=== PATIENT | female | born 1950 | race Caucasian/White ===

== ENCOUNTER 2019-02-24 03:46 | Inpatient (IN) ==
--- NOTE | 2019-02-18 09:28 | EKG Report ---
Test Performed on : 02/18/2019 09:05:55 AM Test Reason : PAT Blood Pressure : / mmHG Vent. Rate : 056 BPM Atrial Rate : 056 BPM P-R Int : 148 ms QRS Dur : 080 ms QT Int : 466 ms P-R-T Axes : 057 027 055 degrees QTc Int : 449 ms Sinus bradycardia. Otherwise normal ECG When compared with ECG of 26-NOV-2009 13:28, No significant change was found Confirmed by Rayna DUNCAN, Wilian Scott ([id number]) on 02/18/2019 3:27:52 PM
[2019-02-18 10:14] LABS: HEMOGLOBIN 11.1 g/dL (12.0-16.0); MCH 28.5 PG (27-31); MCHC 31.7 g/dL (33-37); MCV 89.7 FL (81-99); MPV 10.4 FL (7.4-10.4); RBC 3.9 XMIL (4.2-5.4); RDW 12.9 % (11.5-14.5); WBC 7.03 X1000 (4.8-10.8)
[2019-02-18 10:41] LABS: CALCIUM 9.5 mg/dL (8.8-10.2); CREATININE 1.6 mg/dL (0.5-0.9); POTASSIUM 4.4 mmol/L (3.5-5.1)
[2019-02-24] MEDS ORDERED: NITROGLYCERIN 50 MG/D5W 50 MG/250 ML IV.SOLN ONE (06:05)
[2019-02-24] MEDS ORDERED: LR 1,000 ML ONE ×2 (06:34→11:03)
[2019-02-24] MEDS ORDERED: KEFZOL 1 GM/D5W 1 GM/50 ML IVPB ONE (06:34)
[2019-02-24] MEDS ORDERED: NS 1,000 ML ONE (08:42)
[2019-02-24] MEDS ORDERED: XYLOCAINE 1% ONE (08:42)
[2019-02-24] MEDS ORDERED: MARCAINE 0.25% PF/EPI 1:200,000 ONE (08:42)
[2019-02-24] MEDS ORDERED: HEPARIN ONE (08:42)
[2019-02-24] MEDS ORDERED: KEFZOL ONE (08:42)
[2019-02-24] MEDS ORDERED: NS 500 ML ONE (08:45)
[2019-02-24] MEDS ORDERED: XYLOCAINE-MPF 2% ONE (09:37)
[2019-02-24] MEDS ORDERED: QUELICIN (DOSE) ONE (09:37)
[2019-02-24] MEDS ORDERED: NEO-SYNEPHRINE ONE (09:37)
[2019-02-24] MEDS ORDERED: EPHEDRINE ONE (09:37)
[2019-02-24] MEDS ORDERED: STERILE WATER INJ. ONE (09:37)
[2019-02-24] MEDS ORDERED: ZOFRAN ONE (09:37)
[2019-02-24] MEDS ORDERED: ROBINUL ONE (09:37)
[2019-02-24] MEDS ORDERED: AMIDATE ONE (09:38)
[2019-02-24] MEDS: OFIRMEV 1000 MG/ISOTONIC SOLN 1,000 MG/100 ML BOTTLE ONE ×2 (10:24→11:48)
--- NOTE | 2019-02-24 10:31 | OPERATIVE NOTE ---
PROCEDURE DATE: 02/24/2019 PROCEDURE PERFORMED: Left carotid endarterectomy with patch angioplasty. SURGEON: Sabino Syed MD. ROLLER BEARING INSPECTOR: Ivan Quintana RN. PREOPERATIVE DIAGNOSIS: High-grade left internal carotid stenosis. POSTOPERATIVE DIAGNOSIS: High-grade left internal carotid stenosis. DESCRIPTION OF PROCEDURE: Satisfactory general endotracheal anesthesia was achieved. The patient was gently turned to the right. The left side of the neck was prepped and draped in a sterile fashion. We marked the skin in a skin line and anesthetized the skin with 0.25 Marcaine with epinephrine. We then incised the skin in the skin line. We carried our incision to the platysma. We then dissected along the anterior border of the sternocleidomastoid muscle. We placed a Gelpi retractor. Crossing vein was ligated with 3-0 silk ties and divided and clipped as well. We then exposed the common carotid artery, surrounded it with an umbilical tape. Then 5000 units of heparin were given. We then dissected the bifurcations. The external carotid was surrounded with a large vessel loop. The internal carotid was dissected and surrounded with a small vessel loop. We did not get high enough to identify the hypoglossal nerve. After the heparin had circulated for 5 minutes, we then occluded flow in the external with a vessel loop, clamped off the internal with a profunda clamp and clamped off the common with a 35/35 angle DeBakey clamp. Under 2.5 loupe magnification, we incised the common carotid with an 11 blade and used a Brito scissors to dissect through the calcific plaque into the internal carotid. We then placed a 4 to 3 mm Sundt shunt, the smaller end going in the internal, the larger end going in the common. Then we used a Esparto to raise the plaque out of the bulb. We transected it proximally with the Brito scissors. We just did an eversion endarterectomy on the external and then dissected the internal until we had a very nice taper point, removing the plaque. We irrigated out the endarterectomized vessel and removed all leaflets we could identify. There was excellent taper point and no need for a tacking suture of the intima. We then obtained a 1 x 6 bovine patch that had been soaked in saline. We then constructed the patch angioplasty with a running 6-0 Prolene stitch. As we neared closure, I finished completion of the patch angioplasty, we back bled the external carotid artery. We then removed the shunt from the internal and back bled it. We clamped it off with the profunda clamp and then removed the shunt from the common and fore bled it. Once again, we clamped the vessels and then completed the patch angioplasty. We held the internal occluded, opened the external, then the common and then after 7 seconds, opened the internal. A couple of additional stitches were used to achieve complete hemostasis along the patch angioplasty. We irrigated out the wound with Kefzol-impregnated saline. The patch angioplasty was hemostatic. We placed a Loc drain within the wound, secured it to the skin with a 2-0 silk. We then closed the platysma with a running 3-0 Polysorb. Once again, injected 0.25 Marcaine with epinephrine in the subcutaneous tissue for anesthetic relief of the incision. We then closed the skin with a 4-0 Polysorb subcuticular stitch. Telfa and a sterile OpSite was applied. A sterile dressing was placed around the exit site of the drain. She tolerated it well, was awakening at the time of this dictation. cc: Sabino Syed MD
[2019-02-24] MEDS ORDERED: LR 1,000 ML IV SCH ×2 (11:20→17:06)
[2019-02-24] MEDS ORDERED: ZOFRAN IV PRN (11:20)
[2019-02-24 13:15] LABS: URINE SOURCE CATH
[2019-02-24 13:20] LABS: BILIRUBIN URINE NEGATIVE (NEGATIVE); BLOOD URINE NEGATIVE (NEGATIVE); COLOR STRAW; GLUCOSE URINE NEGATIVE (NEGATIVE); KETONE URINE NEGATIVE (NEGATIVE); LEUKOCYTES URINE SMALL (NEGATIVE); NITRITE URINE NEGATIVE (NEGATIVE); PROTEIN URINE NEGATIVE (NEGATIVE); SP GRAVITY URINE 1.006; TURBIDITY URINE CLEAR (CLEAR); UROBILINOGEN URINE NORMAL (NORMAL)
[2019-02-24 13:22] LABS: UR EPITHELIAL CELLS <10 /HPF (<10); URINE BACTERIA NEGATIVE /HPF; URINE RBC <10 /HPF (<10); URINE WBC <10 /HPF (<10)
[2019-02-24] MEDS: ULTRAM PO PRN ×2 (13:57→19:41)
[2019-02-24] MEDS: ZANTAC PO SCH ×2 (15:00→20:09)
[2019-02-24] MEDS: NEURONTIN PO SCH ×2 (15:01→20:09)
[2019-02-24] MEDS: OFIRMEV 1000 MG/ISOTONIC SOLN 1,000 MG/100 ML BOTTLE IV SCH ×2 (15:01→21:15)
--- NOTE | 2019-02-24 18:40 | GENERAL SURGERY PROGRESS NOTE ---
DATE: 02/24/2019 TIME: 5:05 p.m. Ms. Nick is doing well. Her trachea is in the midline. There is no significant swelling. Neurologically, she is fine. We will give her liquids tonight, remove her arterial line, and transfer out of the unit in the morning. cc: Sabino Syed MD
[2019-02-24] MEDS: ZANAFLEX PO SCH (20:08)
[2019-02-24] MEDS: TOPROL XL PO SCH (20:09)
[2019-02-24] MEDS ORDERED: VALIUM PO ONE (22:44)
[2019-02-25] MEDS: ULTRAM PO PRN ×2 (02:37→18:47)
[2019-02-25] MEDS: OFIRMEV 1000 MG/ISOTONIC SOLN 1,000 MG/100 ML BOTTLE IV SCH ×2 (03:50→09:00)
[2019-02-25] MEDS: LINZESS PO SCH (06:23)
[2019-02-25] MEDS: SYNTHROID PO SCH (06:34)
[2019-02-25] MEDS ORDERED: SYNTHROID PO SCH (07:00)
[2019-02-25] MEDS: TOPROL XL PO SCH ×2 (08:59→21:00)
[2019-02-25] MEDS: NEXIUM PO SCH (09:00)
[2019-02-25] MEDS: ASPIRIN PO SCH (09:00)
[2019-02-25] MEDS: ARICEPT PO SCH (09:00)
[2019-02-25] MEDS: NEURONTIN PO SCH ×3 (09:00→21:00)
[2019-02-25] MEDS: FLOMAX PO SCH (09:00)
[2019-02-25] MEDS: NORVASC PO SCH (09:00)
[2019-02-25] MEDS: ZYLOPRIM PO SCH (09:40)
[2019-02-25] MEDS: BUSPAR PO SCH ×2 (09:40→21:00)
--- NOTE | 2019-02-25 09:53 | GENERAL SURGERY PROGRESS NOTE ---
DATE: 02/25/2019 SUBJECTIVE: she is postop day 1 after left carotid endarterectomy. She is doing well. Trachea is midline. No significant swelling. She is neurologically intact. PLAN: The plan is to remove her drain, advance her diet, and transfer out to her regular room. She is pleased with her progress. cc: Sabino Syed MD
[2019-02-25] MEDS: SINEQUAN PO SCH ×3 (09:54→17:11)
[2019-02-25] MEDS: ZANTAC PO SCH ×2 (16:01→21:00)
[2019-02-25] MEDS: ZANAFLEX PO SCH (21:00)
[2019-02-26] MEDS: ULTRAM PO PRN (00:36)
[2019-02-26] MEDS: LINZESS PO SCH (06:04)
[2019-02-26] MEDS: SYNTHROID PO SCH (06:04)
[2019-02-26] MEDS: BUSPAR PO SCH (09:10)
[2019-02-26] MEDS: ZYLOPRIM PO SCH (09:10)
[2019-02-26] MEDS: FLOMAX PO SCH (09:11)
[2019-02-26] MEDS: ARICEPT PO SCH (09:11)
[2019-02-26] MEDS: NEXIUM PO SCH (09:11)
[2019-02-26] MEDS: ASPIRIN PO SCH (09:11)
[2019-02-26] MEDS: NORVASC PO SCH (09:11)
[2019-02-26] MEDS: NEURONTIN PO SCH (09:11)
[2019-02-26] MEDS: SINEQUAN PO SCH ×2 (09:11→13:15)
[2019-02-26] MEDS: TOPROL XL PO SCH (09:11)
[2019-02-26 12:19] VITALS: BP 139/49
--- NOTE | 2019-02-26 14:13 | GENERAL SURGERY PROGRESS NOTE ---
DATE: 02/26/2019 SUBJECTIVE: Ms. Nick is doing well. OBJECTIVE: Hemodynamically she is good. Neurologically, she is fine. Her trachea is in midline. No significant hematoma was present. PLAN: The plan is to let her go home. We discussed wound care and activity at home. She will return to see me in the office in about 10 days. cc: Sabino Syed MD
== END 2019-02-26 14:40 | disposition home or self-care (01) | DRG 39 ==
LOC: SURHOLD 03:46 → ICU 11:19 → 4N 02-25 10:12
PROVIDERS: ADMIT Surgery; ATTEND Surgery

== ENCOUNTER 2019-03-03 21:48 | Inpatient (IN) ==
[2019-03-03 22:58] LABS: URINE SOURCE CLEAN CATCH
[2019-03-03 23:01] LABS: BILIRUBIN URINE NEGATIVE (NEGATIVE); BLOOD URINE NEGATIVE (NEGATIVE); COLOR STRAW; GLUCOSE URINE NEGATIVE (NEGATIVE); KETONE URINE NEGATIVE (NEGATIVE); LEUKOCYTES URINE NEGATIVE (NEGATIVE); NITRITE URINE NEGATIVE (NEGATIVE); PROTEIN URINE NEGATIVE (NEGATIVE); SP GRAVITY URINE 1.005; TURBIDITY URINE CLEAR (CLEAR); UR EPITHELIAL CELLS <10 /HPF (<10); URINE BACTERIA NEGATIVE /HPF; URINE RBC <10 /HPF (<10); URINE WBC <10 /HPF (<10); UROBILINOGEN URINE NORMAL (NORMAL)
[2019-03-03 23:29] LABS: BASO# 0.04 X1000 (0.0-0.2); BASO% 0.6 % (0.0-0.8); EOS% 1.6 % (0.0-10.0); HEMATOCRIT 34.4 % (37.0-47.0); LYMPH# 2.48 X1000 (1.2-3.4); LYMPH% 39.9 % (20.5-51.1); MCH 28.5 PG (27-31); MCV 89.1 FL (81-99); MONO# 0.66 X1000 (0.11-0.59); MONO% 10.6 % (1.7-9.3); NEUT# 2.93 X1000 (1.4-6.5); NEUT% 47.3 % (42.2-75.2); PLT 292 X1000 (130-400); RBC 3.86 XMIL (4.2-5.4); RDW 12.8 % (11.5-14.5); WBC 6.21 X1000 (4.8-10.8)
[2019-03-03 23:35] LABS: UR AMPHETAMINES QUAL NONE DETECTED (NONE DETECT); UR BARBITUATES QUAL NONE DETECTED (NONE DETECT); UR BENZODIAZEPIN QUAL NONE DETECTED (NONE DETECT); UR CANNABINOIDS QUAL NONE DETECTED (NONE DETECT); UR COCAINE QUAL NONE DETECTED (NONE DETECT); UR METHADONE QUAL NONE DETECTED (NONE DETECT); UR OPIATES QUAL PRESUMPTIVE POSITIVE (NONE DETECT); UR OXYCODONE QUAL NONE DETECTED (NONE DETECT); UR PCP QUAL NONE DETECTED (NONE DETECT)
[2019-03-03 23:52] LABS: ALB/GLOB RATIO 1.6; ALBUMIN 4.2 g/dL (3.5-5.0); CALCIUM 9.4 mg/dL (8.8-10.2); CREATININE 1.3 mg/dL (0.5-0.9); POTASSIUM 4.3 mmol/L (3.5-5.1); TOTAL BILIRUBIN 0.15 mg/dL (0.20-1.00); TOTAL PROTEIN 6.9 g/dL (6.3-8.3)
[2019-03-03 23:53] LABS: INR 0.86; PROTIME 12.5 Seconds (11.0-16.0)
--- NOTE | 2019-03-04 01:30 | PROVIDER DOCUMENTATION ---
This chart was entered by Carmen Ayers Scribe, acting as scribe for Brenna Conner MD. HPI-Neurological Disorder - General Chief Complaint: Weakness Stated Complaint: post op complaint Time Seen by Provider: 03/03/19 22:15 Allergies/Adverse Reactions: Patient Allergies Allergy/AdvReac Type Severity Reaction Status Date / Time adhesive tape AdvReac Unknown Verified 02/18/19 08:59 Home Medications: Home Medication List Medication Instructions Recorded Confirmed Last Taken Type Acetaminophen with Codeine 1 tab PO Q8H PRN 02/26/18 03/03/19 02/23/19 History [Tylenol with Codeine #4 Tablet] Allopurinol 100 mg PO DAILY 02/26/18 03/03/19 02/23/19 History Doxepin [Sinequan] 150 mg PO TID 02/26/18 03/03/19 02/23/19 History Gabapentin 800 mg PO TID 02/26/18 03/03/19 02/23/19 History Levothyroxine [Synthroid] 100 microgm PO DAILY 02/26/18 03/03/19 02/23/19 History Donepezil HCl 5 mg PO DAILY 08/29/18 03/03/19 02/23/19 History Esomeprazole [Nexium] 40 mg PO DAILY 08/29/18 03/03/19 02/23/19 History Tizanidine [Zanaflex] 4 mg PO QHS 08/29/18 03/03/19 02/23/19 History Zolpidem Tartrate [Ambien] 0.5 - 1 tab PO HS 08/29/18 03/03/19 02/23/19 History Linaclotide [Linzess] 145 mcg PO DAILY #90 cap 09/01/18 03/03/19 02/10/19 Rx Amlodipine [Norvasc] 5 mg PO DAILY 02/18/19 03/03/19 02/23/19 22:00 History Buspirone [Buspar] 15 mg PO BID 02/18/19 03/03/19 02/23/19 History Furosemide 20 mg PO PRN PRN 02/18/19 03/03/19 02/22/19 History Metoprolol Succinate 100 mg PO BID 02/18/19 03/03/19 02/23/19 22:00 History Ranitidine HCl [Zantac] 300 mg PO QHS 02/18/19 03/03/19 02/23/19 History Tamsulosin [Flomax] 0.4 mg PO DAILY 02/18/19 03/03/19 02/23/19 History Aspirin 81 mg PO DAILY chewtab 02/26/19 03/03/19 Unknown Rx - History of Present Illness-Neuro Nature of Presenting Problem: pt is a 68 yr old female presenting with weakness to right arm/hand onset 1200 today, pt reports left carotid surgery 1 week ago. 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 pt denies any chest pain, shortness of breath difficulty ambulating, no weakness to right leg Severity: reports: mild Onset/Duration: reports: this afternoon (1200) Timing: reports: still present Context: reports: other (weak right arm/hand) Character of Altered Mental Status: reports: N/A Any recent trauma/injury?: reports: none Character of Deficits: reports: new weakness (right arm/hand) New weakness or altered sensation location:: reports: RUE Cognitive Baseline: alert, oriented x3 Gait Baseline: walks without assistance Associated Symptoms: reports: weakness (right arm/hand). denies: headache, confusion, slurred speech, tingling in legs/feet, trouble walking, vision changes Similar Symptoms Previously?: No Recently seen or treated by another doctor?: No Review of Systems - Adult - REVIEW OF SYSTEMS - ADULT Constitutional: denies: fever, fatique Eyes: denies: blurred vision, double vision Ears, Nose, Mouth & Throat: denies: ear pain, sinus problem, hoarseness, throat pain, throat swelling Cardiovascular: denies: chest pain, palpitations, syncope Respiratory: denies: cough, wheezing Gastrointestinal: denies: abdominal pain, diarrhea, nausea, vomiting Genitourinary: denies: dysuria, frequency, flank pain Musculoskeletal: reports: muscle weakness (right arm/hand). denies: back pain Integumentary: reports: no symptoms reported Neurological: denies: dizziness/vertigo, headache/migraines, numbness, slurred speech, tremors Psychiatric: reports: no symptoms reported Endocrine: reports: no symptoms reported Hematologic/Lymphatic: reports: no symptoms reported Allergic/Immunologic: reports: no symptoms reported All Other Systems: Reviewed and Negative Past History - Adult - PAST MEDICAL HISTORY-ADULT Review of Records: reports: Old Records Reviewed, Nursing Assessment Review, Medications Reviewed, Social history reviewed & non-contributory. Major Childhood Illnesses: reports: denies history Cardiovascular: reports: denies history Respiratory: reports: denies history Gastrointestinal: reports: denies history Obstetrical/Gynecological: reports: denies history Genitourinary: reports: denies history Musculoskeletal: reports: denies history Neurological: reports: denies history Endocrine/Immune: reports: denies history Other Conditions: reports: denies history - IMMUNIZATION STATUS Childhood Immunizations: See Nurse Assessment Flu Vaccine: See Nurse Assessment - FAMILY HISTORY Family History: reviewed, not pertinent - SOCIAL HISTORY Smoking: quit greater than 1 year Substance Use: denies Living Situation: family Physical Exam- Neurological - Physical Exam-Neuro Initial Vital Signs Reviewed: Yes General Appearance: alert, no apparent distress Eye Exam: left eye: normal inspection, PERRL HENMT: normocephalic/atraumatic, moist mucous membranes, normal ENT inspection Head Injury: no evidence of injury Neck: non-tender, full range of motion, supple, other (clean/dry bandage left neck) Respiratory: chest non-tender, lungs clear, normal breath sounds, no respiratory distress, no accessory muscle use Cardiovascular: normal peripheral pulses, regular rate, rhythm, no edema Abdominal Exam: normal bowel sounds, non tender, soft Lymphatic: no adenopathy Peripheral Pulses: radial (R): 2+, radial (L): 2+ Extremity: normal range of motion, non-tender, 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 Exam: normal hearing, normal speech, PERRL Motor/Sensory: no motor deficit, no sensory deficit, no pronator drift Neurologic: grossly normal, no motor/sensory deficits, other (CN II-XII intact) Integumentary: normal color, normal turgor, warm/dry Psych/Mental Status: normal mood/affect - Glascow Coma Scale Best Eye Response: (4) open spontaneously Best Verbal Response: (5) oriented Best Motor Response: (6) obeys commands Total Glascow Score: 15 Progress - PLAN OF CARE/RESULTS Progress/Plan/Lab Results: Vital Signs - 8 hr 03/03/19 23:18 03/03/19 23:33 03/03/19 23:48 Pulse Rate 102 H 97 H 101 H Respiratory Rate 22 22 24 Blood Pressure 128/84 130/73 114/82 O2 Sat by Pulse Oximetry 94 L 95 95 03/04/19 00:03 03/04/19 00:18 03/04/19 00:48 Pulse Rate 102 H 100 H 99 H Respiratory Rate 20 17 23 Blood Pressure 131/79 98/74 131/76 O2 Sat by Pulse Oximetry 93 L 94 L 93 L 03/04/19 01:03 03/04/19 01:18 Pulse Rate 97 H 108 H Respiratory Rate 25 H 20 Blood Pressure 114/86 166/93 O2 Sat by Pulse Oximetry 95 93 L Laboratory Results - last 24 hr 03/03/19 03/03/19 03/03/19 22:16 22:52 22:52 WBC RBC Hgb Hct MCV MCH MCHC RDW Std Deviation Plt Count MPV Immature Gran % (Auto) Neut % (Auto) Lymph % (Auto) Cory[place] % (Auto) Eos % (Auto) Baso % (Auto) Immature Gran # (Auto) Neut # (Auto) Lymph # (Auto) Coryell # (Auto) Eos # (Auto) Baso # (Auto) PT INR Sodium Potassium Chloride Carbon Dioxide Anion Gap BUN Creatinine Estimated GFR/1.73 m2 BUN/Creatinine Ratio Glucose POC Glucose 110 H Calculated Osmolality Calcium Total Bilirubin AST ALT Alkaline Phosphatase Troponin T Total Protein Albumin Globulin Albumin/Globulin Ratio Urine Source CLEAN CATCH Urine Color STRAW Urine Turbidity CLEAR Urine pH 6.0 Ur Specific Weston 1.005 Urine Protein NEGATIVE Ur Glucose (Stick) NEGATIVE Ur Ketones (Stick) NEGATIVE Urine Blood NEGATIVE Urine Nitrite NEGATIVE Urine Bilirubin NEGATIVE Urobilinogen Dipstick NORMAL Urine Leukocytes NEGATIVE Urine WBC (Auto) <10 Urine RBC (Auto) <10 U Epithel Cells (Auto) <10 Urine Bacteria (Auto) NEGATIVE Urine Opiates Screen PRESUMPTIVE POSITIVE A Ur Oxycodone Screen NONE DETECTED Ur Methadone, Qual NONE DETECTED Ur Barbiturates Screen NONE DETECTED Ur Phencyclidine Scrn NONE DETECTED Ur Amphetamines Screen NONE DETECTED U Benzodiazepines Scrn NONE DETECTED Urine Cocaine Screen NONE DETECTED U Cannabinoids Screen NONE DETECTED 03/03/19 03/03/19 03/03/19 23:10 23:10 23:10 WBC 6.21 RBC 3.86 L Hgb 11.0 L Hct 34.4 L MCV 89.1 MCH 28.5 MCHC 32.0 L RDW Std Deviation 12.8 Plt Count 292 MPV 10.0 Immature Gran % (Auto) 0.0 Neut % (Auto) 47.3 Lymph % (Auto) 39.9 Coryell % (Auto) 10.6 H Eos % (Auto) 1.6 Baso % (Auto) 0.6 Immature Gran # (Auto) 0.00 Neut # (Auto) 2.93 Lymph # (Auto) 2.48 Coryell # (Auto) 0.66 H Eos # (Auto) 0.10 Baso # (Auto) 0.04 PT 12.5 INR 0.86 Sodium 143 Potassium 4.3 Chloride 105 Carbon Dioxide 24 L Anion Gap 14 BUN 18 Creatinine 1.3 H Estimated GFR/1.73 m2 41 BUN/Creatinine Ratio 14 Glucose 158 H POC Glucose Calculated Osmolality 290 Calcium 9.4 Total Bilirubin 0.15 L AST 20 ALT 19 Alkaline Phosphatase 159 H Troponin T Total Protein 6.9 Albumin 4.2 Globulin 2.7 Albumin/Globulin Ratio 1.6 Urine Source Urine Color Urine Turbidity Urine pH Ur Specific Weston Urine Protein Ur Glucose (Stick) Ur Ketones (Stick) Urine Blood Urine Nitrite Urine Bilirubin Urobilinogen Dipstick Urine Leukocytes Urine WBC (Auto) Urine RBC (Auto) U Epithel Cells (Auto) Urine Bacteria (Auto) Urine Opiates Screen Ur Oxycodone Screen Ur Methadone, Qual Ur Barbiturates Screen Ur Phencyclidine Scrn Ur Amphetamines Screen U Benzodiazepines Scrn Urine Cocaine Screen U Cannabinoids Screen 03/03/19 03/04/19 23:10 03:38 WBC RBC Hgb Hct MCV MCH MCHC RDW Std Deviation Plt Count MPV Immature Gran % (Auto) Neut % (Auto) Lymph % (Auto) Coryell % (Auto) Eos % (Auto) Baso % (Auto) Immature Gran # (Auto) Neut # (Auto) Lymph # (Auto) Coryell # (Auto) Eos # (Auto) Baso # (Auto) PT INR Sodium Potassium Chloride Carbon Dioxide Anion Gap BUN Creatinine Estimated GFR/1.73 m2 BUN/Creatinine Ratio Glucose POC Glucose 118 H Calculated Osmolality Calcium Total Bilirubin AST ALT Alkaline Phosphatase Troponin T < 0.010 Total Protein Albumin Globulin Albumin/Globulin Ratio Urine Source Urine Color Urine Turbidity Urine pH Ur Specific Weston Urine Protein Ur Glucose (Stick) Ur Ketones (Stick) Urine Blood Urine Nitrite Urine Bilirubin Urobilinogen Dipstick Urine Leukocytes Urine WBC (Auto) Urine RBC (Auto) U Epithel Cells (Auto) Urine Bacteria (Auto) Urine Opiates Screen Ur Oxycodone Screen Ur Methadone, Qual Ur Barbiturates Screen Ur Phencyclidine Scrn Ur Amphetamines Screen U Benzodiazepines Scrn Urine Cocaine Screen U Cannabinoids Screen Orders Category Date Time Status Admit - [facility] Routine AdmDCTranf 03/04/19 05:49 Active FSBS/Accucheck Result NOW Care 03/04/19 05:49 Active Neurological Check Q4H Care 03/04/19 05:49 Active Vital Signs Order Q 4-HR ASSESS Care 03/04/19 05:49 Active Z-Document. for Tele Applied ORDERED Care 03/04/19 05:49 Completed NPO Diet 03/04/19 05:49 Active CHEST-PORTABLE [RAD] Urgent Exams 03/04/19 03:[address] HEAD W/O CONTRAST [CT] Stat Exams 03/03/19 22:44 Completed CBC WITH ELECTRONIC DIFF [HEME] Stat Lab 03/03/19 23:10 Completed COMPREHENSIVE METABOLIC PANEL [CHEM] Stat Lab 03/03/19 23:10 Completed PROTIME WITH INR [COAG] Stat Lab 03/03/19 23:10 Completed TROPONIN T Stat Lab 03/03/19 23:10 Completed URINALYSIS W/POSS RFLX CULT [URINALYSIS] Stat Lab 03/03/19 22:52 Completed URINE DRUG SCREEN Stat Lab 03/03/19 22:52 Completed Acetaminophen [Ofirmev 1000 mg/Isotonic Soln] Med 03/04/19 03:25 Discontinued 1,000 mg in 100 ml IV ONCE Ondansetron [Zofran] Med 03/04/19 03:27 Discontinued 4 mg IV NOW ONE Oxygen Device Routine Oth 03/04/19 05:49 Completed Telemetry [OM.EQ] Routine Oth 03/04/19 05:49 Active Transfer/Admit Order [TRANSFER] Routine Transfer 03/04/19 02:56 Completed Result Diagrams: 03/04/19 06:20 03/04/19 06:20 - EKG 1 Time of EKG reading by physician:: 22:21 EKG Read and Signed by:: Brenna Conner EKG Interpretation (*Must complete 3 of following elements*): Normal (+artifact) Rate: 93 Rhythm: nsr Acworth: normal QRS: normal IN Interval: normal ST Wave: normal - CT/MRI 1 CT Study: Head Impression: Normal (no acute intracranial injury, specifically no evidence of intracranial hemorrhage), See EMR Report Comparison with other Films: no changes (01/21/19) Departure - Departure Date of Disposition Decision: 03/04/19 Time of Disposition Decision: 00:15 DIAGNOSIS: Weakness of left upper extremity, Stroke-like symptoms Disposition: ADMITTED INPATIENT 09 Certified Medical Emergency: Emergent Condition: Stable - Critical Care Note This patient required my direct & personal management of CC.: No Attestation - Physician/ RADHA Attestation Patient care was provided by Advanced Practice Provider:: No The physician spent face to face time with patient:: Yes Advanced Practice Provider documentation review:: Supervising physician onsite and consulted in the evaluation and care of this patient. The physician did have a face to face encounter with the patient. - NIH Stroke Scale NIH Type: Initial Evaluation Level of Consciousness: 0-Alert LOC Questions (ask month and age): 0-Answers Both Correctly LOC Commands (ask to open & close eyes;make a fist, let go): 0-Obeys Both Correctly Best Gaze (horizontal eye movement): 0-Normal Visual (use finger movement, counting or visual threat): 0-No Visual Loss Facial Palsy (show teeth or raise eyebrows & close eyes tght: 0-Symmetrical Movement Motor Function-left arm: 0-Normal Motor Function-right arm: 0-Normal Motor Function-left le-Normal Motor Function-right le-Drift Limb Ataxia(wbxiap-[id number], or heel to cason): 2-Present in two limbs Sensory(pin prick to face,arms,trunk,legs-compare side/side): 0-No Ataxia Best Language(name item/read sentence.Ex-Down to Earth): 0-No Aphasia Dysarthria(Pt read words or say words Ex.Mama,Tip-Top,Thanks: 0-Normal Articulation Extinction and Inattention: 0-Normal NIH Total Score: 2 This chart was documented by the indicated scribe, (Carmen Ayers, Scribe) and accurately reflects the services I performed and decisions made by me, Brenna Conner MD, as attested by the provider's signature.
[2019-03-04] MEDS ORDERED: OFIRMEV 1000 MG/ISOTONIC SOLN 1,000 MG/100 ML BOTTLE IV ONE (03:25)
[2019-03-04] MEDS ORDERED: ZOFRAN IV ONE (03:27)
[2019-03-04] MEDS ORDERED: ZOFRAN IV PRN (05:57)
--- NOTE | 2019-03-04 06:11 | Diag Imaging Result Doc PS360 ---
CT HEAD W/O CONTRAST - 03/03/2019 INDICATION: weakness LUE, recent carotid endarterectomy COMPARISON: 01/21/2019 FINDINGS: The ventricles and sulci are normal in size and contour. No intracranial mass or hemorrhage. There is stable mild scattered periventricular white matter chronic microvascular disease. The skull is intact. The sinuses are clear. IMPRESSION: No acute disease or change from prior. This exam was performed using automated exposure control, adjustment of mA or kV according to patient size, and/or use of iterative reconstruction technique Electronically signed by Chip Parmar 03/04/2019 6:09 AM
[2019-03-04 06:36] LABS: HEMATOCRIT 34.4 % (37.0-47.0); HEMOGLOBIN 11.1 g/dL (12.0-16.0); MCHC 32.3 g/dL (33-37); MCV 89.8 FL (81-99); RBC 3.83 XMIL (4.2-5.4); WBC 6.13 X1000 (4.8-10.8)
[2019-03-04 06:37] LABS: BASO# 0.03 X1000 (0.0-0.2); BASO% 0.5 % (0.0-0.8); EOS# 0.11 X1000 (0.0-0.7); EOS% 1.8 % (0.0-10.0); LYMPH# 2.38 X1000 (1.2-3.4); LYMPH% 38.8 % (20.5-51.1); MONO# 0.62 X1000 (0.11-0.59); MONO% 10.1 % (1.7-9.3); MPV 9.9 FL (7.4-10.4); NEUT# 2.99 X1000 (1.4-6.5); NEUT% 48.8 % (42.2-75.2); PLT 298 X1000 (130-400); RDW 12.9 % (11.5-14.5)
[2019-03-04 06:52] LABS: CALCIUM 9.2 mg/dL (8.8-10.2); CREATININE 1.1 mg/dL (0.5-0.9); POTASSIUM 3.8 mmol/L (3.5-5.1)
[2019-03-04] MEDS ORDERED: NS 1,000 ML IV SCH (07:00)
--- NOTE | 2019-03-04 08:06 | Diag Imaging Result Doc PS360 ---
EXAM: CHEST-PORTABLE INDICATION: LLL Crackles,SOB TECHNIQUE: One view COMPARISON: None. FINDINGS: There are slightly increased interstitial markings bilaterally, which may represent minimal edema. There is a slight opacity at the left lung base suggesting atelectasis and/or infiltrate. There also may be a trace effusion on the left. There is minimal biapical pleural thickening. There are median sternotomy wires and metallic clips rejecting over the left hilar region. Cardiac silhouette is unremarkable, otherwise. IMPRESSION: Slight increased interstitial markings and vague opacity at the left lung base suggesting mild atelectasis and/or infiltrate. Electronically signed by Rj Loyd 03/04/2019 7:19 AM
--- NOTE | 2019-03-04 08:06 | EKG Report ---
Test Performed on : 03/03/2019 10:17:42 PM Test Reason : WEAKNESS Blood Pressure : / mmHG Vent. Rate : 093 BPM Atrial Rate : 093 BPM P-R Int : 134 ms QRS Dur : 066 ms QT Int : 372 ms P-R-T Axes : 012 036 035 degrees QTc Int : 462 ms Normal sinus rhythm. Nonspecific T wave abnormality Abnormal ECG When compared with ECG of 18-FEB-2019 09:05, Vent. rate has increased BY 37 BPM Nonspecific T wave abnormality now evident in Inferior leads Unconfirmed Result
[2019-03-04 09:04] LABS: URINE SOURCE CLEAN CATCH
[2019-03-04 09:13] LABS: BILIRUBIN URINE NEGATIVE (NEGATIVE); BLOOD URINE NEGATIVE (NEGATIVE); COLOR STRAW; GLUCOSE URINE NEGATIVE (NEGATIVE); KETONE URINE NEGATIVE (NEGATIVE); LEUKOCYTES URINE NEGATIVE (NEGATIVE); NITRITE URINE NEGATIVE (NEGATIVE); PROTEIN URINE NEGATIVE (NEGATIVE); TURBIDITY URINE CLEAR (CLEAR); UROBILINOGEN URINE NORMAL (NORMAL)
[2019-03-04 09:14] LABS: UR EPITHELIAL CELLS <10 /HPF (<10); URINE BACTERIA NEGATIVE /HPF; URINE RBC <10 /HPF (<10); URINE WBC <10 /HPF (<10)
[2019-03-04] MEDS ORDERED: DUONEB (A & A) INH PRN (12:56)
--- NOTE | 2019-03-04 14:17 | HISTORY AND PHYSICAL ---
PATIENT'S PRIMARY CARE PROVIDER: Jenni Dejesus MD CHIEF COMPLAINT: Weakness. HISTORY OF PRESENT ILLNESS: Ms. Nick is a 68-year-old female who just recently was discharged from our facility after undergoing a left carotid endarterectomy with patch angioplasty on 02/22/2019. She did have a carotid ultrasound prior to this, which did show high-grade left internal carotid stenosis. Also she does have stable right-sided severe stenosis as well, which was noted to be 60% to 79%, though this was noted to be stable. The patient states that since being discharged home she had been doing well, though for the last day or so, she had been having some shortness of breath though she denies any cough. Though she also reports that the left side of her neck around her surgical site had felt tighter than it had been feeling. Though yesterday on February 01 at approximately 12 p.m. she did report that she had onset of weakness in her right arm and numbness in her right hand. She also complained of numbness to her lips. The patient also states that she has had a headache which starts in the frontal area and extends up and over the back of her head into the occipital area. She has been reporting some blurry vision as well as what sounds to be expressive aphasia. The patient states that she knew what she wanted to say, though was having difficulty actually saying it. Though she denies any fever, body aches, or chills. She denies any chest pain, abdominal pain, vomiting, or diarrhea. She is reporting some mild nausea. She denies any dysuria or urinary frequency. The patient does have some chronic neuropathy in her bilateral lower extremities and does have some numbness associated with this, though she states this is not of new onset. Though at this time, she reports that her speech is better, though she still is having a little trouble getting her words out, stating that she still has to stop and think very carefully before she speaks. She also is still reporting though weakness is somewhat improved she is still having some numbness in her right hand. I forgot to mention that she did report also that she was having trouble holding onto things with the right hand, though this has resolved as well. The patient was holding onto a pen in the rain and was gripping this and using it without difficulty. Upon evaluation in the ER, CBC and chemistries were pretty unremarkable. The patient does have a slightly elevated creatinine of 1.3 and a GFR of 41, though this is not of new onset. It is actually improved from her most recent labs that she has had done. I did perform an EKG which showed normal sinus rhythm at a rate of 93 with a QTc of 462. CT of the head without contrast showed no acute disease or change from prior. Chest x-ray showed slight increased interstitial markings and vague opacity in the left lung base suggesting mild atelectasis and/or infiltrate. She did have crackles noted in the left lung base upon auscultation. At this time, the patient will be admitted for further treatment and evaluation of possible CVA. REVIEW OF SYSTEMS: A 14 point review of systems was conducted with the patient. All were negative except for any pertinent positives mentioned in above HPI. PAST MEDICAL HISTORY: 1. Coronary artery bypass graft x4 vessels. 2. COPD. 3. Dementia. 4. Diabetes mellitus. 5. Hypertension. 6. Hypothyroidism. 7. Gout. 8. Bilateral carotid bruits with bilateral stenoses. The patient on a recent carotid ultrasound was noted to have critical stenosis of 80% to 99% on the left. She did have right-sided stenosis as well that is stable with severe 60% to 79%. The patient is status post a left carotid endarterectomy with Dr. Syed on 02/24/2019. PAST SURGICAL HISTORY: 1. Coronary artery bypass graft x4. 2. Hysterectomy. 3. Left total knee replacement. 4. Recent left carotid endarterectomy. 5. Tubal ligation. 6. An abdominal surgery which the patient states was secondary to an abscess. SOCIAL HISTORY: She is a former smoker. She smoked for approximately 30 years. She did quit smoking in 1996. There is no known alcohol or illicit drug use. FAMILY HISTORY: Positive for her father having a history of heart disease. Her mother had a history of heart disease and diabetes mellitus. ALLERGIES: Patient has allergies to adhesive tape. HOME MEDICATIONS: 1. Tylenol with codeine #4, 1 tablet p.o. q.8 h. p.r.n. for pain. 2. Allopurinol 100 mg p.o. daily. 3. Norvasc 5 mg p.o. daily. 4. Aspirin 81 mg p.o. daily. 5. BuSpar 15 mg p.o. b.i.d. 6. Donepezil 5 mg p.o. daily. 7. Doxepin 150 mg p.o. t.i.d. 8. Nexium 40 mg p.o. daily. 9. Furosemide 20 mg p.o. daily p.r.n. 10. Gabapentin 800 mg p.o. t.i.d. 11. Linzess 145 mcg p.o. daily. 12. Metoprolol succinate 100 mg p.o. b.i.d. 13. Zantac 300 mg p.o. at bedtime. 14. Flomax 0.4 mg p.o. daily. 15. Zanaflex 4 mg p.o. at bedtime. 16. Ambien 10 mg tablet a half to 1 tablet p.o. at bedtime. DIAGNOSTIC STUDIES: White blood cell count is 6210, hemoglobin 11, hematocrit 34.4, platelet count is 292,000. PT 12.5, INR 0.86. Sodium 143, potassium 4.3, chloride 105, serum bicarbonate 24, BUN 18, creatinine 1.3, GFR 41, glucose 158, calcium 9.4. Liver function tests within normal limits except for alkaline phosphatase elevated at 159. Troponin less than 0.01. Urinalysis was obtained via clean catch was negative for protein, glucose, ketones, blood, nitrites, leukocytes, white blood cells, or bacteria. Urine drug screen was positive for opiates only. EKG showed normal sinus rhythm at a rate of 93 with a QTc of 462. CT of the head without contrast showed no acute disease or change from prior. Chest x-ray showed slight increased interstitial markings and vague opacity at the left lung base suggesting atelectasis and/or infiltrate. PHYSICAL EXAMINATION: VITAL SIGNS: Temperature 98.4 degrees, heart rate 78, respirations 18, blood pressure is 110/87, oxygen saturation is 97% on room air. GENERAL: Ms. Nick is a 68-year-old female. She was resting in the ER stretcher. She was in no acute distress. She was awake, alert, and able to answer questions appropriately. HEENT: Head is atraumatic, normocephalic. Pupils are equal, round, and reactive to light and were 3 mm bilaterally and brisk, though the patient is reporting blurry vision. Visual welsh were intact. Oral mucosa is moist. Oropharynx is clear. NECK: Supple. Trachea midline. The patient does have a right carotid bruit noted. There is no carotid bruit noted on the left. CARDIOVASCULAR: Patient had S1, S2 present. No murmurs, gallops, rubs appreciated with regular rate and rhythm. PULMONARY: Patient has symmetrical chest expansion bilaterally. Lung sounds are clear to auscultation in bilateral upper welsh and right lower lung welsh, though in the left lower lobe, she did have crackles noted. ABDOMEN: Soft, nontender, nondistended. Bowel sounds are present in all 4 quadrants and are normoactive. EXTREMITIES: No cyanosis or edema noted. Motor and sensory are intact in all extremities, though the patient did report some numbness in her right hand that is of new onset. She does have some numbness and tingling noted in bilateral lower extremities, though she states this is not of new onset and has not worsened. The patient does have a history neuropathy. Radial and pedal pulses were 3+ bilaterally. INTEGUMENTARY: The patient's skin is pink, warm, and dry. NEUROLOGICAL: Patient is alert and oriented to person, place, time, and situation. She was reporting some expressive aphasia, though she states this has improved, though she is still reporting that she has to think before she speaks to make sure she says the right thing. You can tell when you ask the patient a question that she does pause and will look at you before she speaks. She is kind of slow to answer questions. She is able to move all extremities, though does have some slight weakness noted in the right upper extremity. She is reporting as previously mentioned numbness in her right hand. There is no facial droop noted. She has no arm drift noted either. ASSESSMENT AND PLAN: 1. Possible cerebrovascular accident. For further evaluation of this, we will perform an MRI of the brain with and without contrast. The patient just recently had a carotid study performed. She was noted to have severe stenosis in the left and has undergone intervention. She is status post a left carotid endarterectomy on February [address] Syed. She was noted to have stable severe stenosis on the right that was 60% to 79%. Given that she has just had this recent study and this recent surgical procedure, we will leave any further vascular studies of her neck up to the discretion of the surgical team. The patient's wound on her left neck did appear to be slightly swollen, though the dressing was clean and intact. There was no bleeding noted. There is no overt warmth or erythema present. We have also ordered further studies of an echocardiogram as well. She will be on continuous cardiac telemetry. We will do q.4 h. vital signs and neurological checks. We will continue to follow this closely and await Surgery's evaluation and further recommendations for management. We will also place a Neurology consult as well with Dr. Del Angel, and we will await his evaluation and further recommendations for management. 2. Status post left carotid endarterectomy. We will continue with treatment as mentioned above for #1. 3. Dyspnea with possible atelectasis versus infiltrate in the left lung base. Though the patient is reporting some mild shortness of breath, she denies any cough. She has not had any fever, body aches, or chills. She is maintaining adequate oxygen saturations and has no leukocytosis noted. We are going to go ahead and initiate aggressive pulmonary toilet with incentive spirometry, frequent turn, cough, and deep breathing, and DuoNeb treatments as needed. We will continue to monitor this closely. We will repeat a chest x-ray later on for further evaluation, though if the patient's symptoms do worsen, we will consider placing her with an antibiotic coverage. 4. Deep vein thrombosis prophylaxis provided with sequential compression devices at this time. We will hold any antiplatelets or anticoagulants at this time until she is evaluated by Surgery. The patient has been placed on the surgical floor with telemetry. She will have vital signs q.4 h. We will do strict intake and output. She will be on some gentle fluid hydration with normal saline at 75 mL per hour. Also until the patient evaluated by Surgery, we will place her n.p.o. Further orders and recommendations pending hospital course, diagnostic studies, and physician evaluation. Dictated by HUMBERTO Mcguire for Salvador Dillon MD cc: Salvador Dillon MD
--- NOTE | 2019-03-04 14:34 | Diag Imaging Result Doc PS360 ---
MRI BRAIN W/WO CONTRAST - 03/04/2019 INDICATION: Right sided weakness,expressive dysphasia COMPARISON: Head CT 03/03/2019 FINDINGS: There is severe patient motion artifact. There is no area of restricted diffusion. No intracranial mass or hemorrhage. The ventricles and sulci are normal in size and contour. There is mild to moderate periventricular cerebral white matter hyperintensity compatible with chronic microvascular disease. No abnormal contrast enhancement. IMPRESSION: Cerebral white matter chronic microvascular disease. No acute process. Electronically signed by Chip Parmar 03/04/2019 2:32 PM
[2019-03-04] MEDS: TYLENOL PO PRN (14:55)
--- NOTE | 2019-03-04 15:17 | CONSULTATION ---
DATE OF CONSULTATION: 03/04/2019 Ms. Nick is 68 years old and she reports noticing on waking yesterday difficulty using right arm and difficulty finding her words. She went to bed the night before feeling well. She could not use her right arm well. She does not report complete paralysis. She did not notice definite right leg weakness or facial asymmetry. Speech was not slurred but she could not put her words together properly. She did not have trouble understanding what was said to her. She did not notice trouble chewing or swallowing. There was no vision disturbance. Symptoms lasted for several hours and resolved after she presented to the emergency room. As these symptoms resolved, she had onset of intense, mostly left-sided headache. Headache has persisted through the day today. She had left carotid endarterectomy on 02/24/2019. She did well from a surgical standpoint. She did not have any focal neurologic deficit since surgery until yesterday. Past history is remarkable for hypertension, diabetes mellitus. She quit smoking cigarettes about 20 years ago. She reports taking her medicines as directed. She had not made any recent medication changes. Home medicines include aspirin. She reports having trouble with memory and starting donepezil 5 mg daily a few years ago. Home medicine list shows five other potentially [employer]PL[employer]ING active medications including doxepin, buspirone, gabapentin, tizanidine, zolpidem. I do not see a statin on her home medication list. I do not see any medicine that would generally be used to treat blood sugar on her home list. Workup here includes lab showing blood sugars 110s-150s. Other labs unremarkable. Urine drug screen was positive for opiates which may be consistent with her pain medicine at home. She has been afebrile. Heart rate has been mostly 100s-110s. Systolic blood pressures have ranged 90s-160s. Noncontrast CT of the head shows chronic changes, nothing focal or acute, no bleeding, no definite evidence of hyperemia in the left hemisphere. She has had brain MRI with report pending. Echocardiogram is planned. I believe the last carotid ultrasound was preop. On exam, she is awake, alert, attentive. She seems uncomfortable with headache and otherwise appropriate. Speech is not dysarthric. Language function is intact on careful bedside testing of naming, repeating, comprehension, fluency. I did not test reading or handwriting. Calculation is good. She did well on tasks requiring right/left distinction and digit distinction. She discussed recent news accurately. She is oriented. I did not check her cognitive function further. Left lateral neck bandage is noted. She has good range of motion in the neck. Superficial temporal artery pulses are present symmetrically. Extraocular movements are full. Visual welsh are full tested by confrontational finger counting. Facial motility is symmetric. Facial sensation is intact. Gag is intact. Tongue is in the midline. She can hear. Shoulder shrug is equal. Strength is normal in the arms and legs. There is no drift. She did well on [id number] testing bilaterally. She reports better pinprick and light touch appreciation over the left hand and ankle than the right with some inconsistent responses. Proprioception is good at the right great toe MTP joint. Plantar response is silent bilaterally. Reflexes are 1+ at the knees, 1+ at the wrists, trace at the ankles. I did not test her gait. IMPRESSION: 1. Reported several hour episode of difficulty using right arm, probable expressive dysphasia. This is concerning for a postoperative ischemic event but hyperperfusion syndrome is also a consideration. 2. Only finding now is minimal and inconsistent sensory deficit. This is reassuring. We need to get the MRI report and consider carotid imaging. I would continue aspirin and continue treating blood pressure very cautiously. If not contraindicated, we might add a statin. I would treat blood sugar aggressively. 3. She has intense headache now. This may be hyperperfusion. She has a background history of episodic headache typical of migraine but she has not had one of these in many years. Not impossible that the episode yesterday was migraine but her risk factors and recent history support aggressive workup for ischemic or hyperemic event. 4. Reported forgetfulness. She does not appear to have major neurocognitive disorder on limited bedside testing today. 5. Multiple central nervous system active medications on board. Thanks for asking neurology to see Ms. Nick. cc: MD LINSEY Cheung III
--- NOTE | 2019-03-04 16:07 | PROGRESS NOTE ---
DATE: 03/04/2019 SUBJECTIVE: She has no major complaints, except for neck pain that has been going on for 3 days. She reports having her surgery last Saturday, which was about 9 days ago. She had been doing okay the last 3 days. She is complaining of pain in her neck, then yesterday she could not use her right hand. There was concern over MRI and that she did have issues associated with that, but overall improved now. On her exam, she is nonfocal. Physical exam is stable. PROBLEM LIST: Possible cerebrovascular accident versus reperfusion injury. Neurology is following. Magnetic resonance imaging was negative. Vascular will follow. I do think I am going to computed tomography her neck and head just to make sure there is no big issue there with thrombosis or anything to that effect, but overall she looks fairly stable. We will continue to work on pain control, monitor and get Neurology and Vascular opinions. cc: Robert Wahl MD
--- NOTE | 2019-03-04 18:02 | ECHO REPORT ---
ORDER DATE: 03/04/2019 INDICATION: Stroke. M-MODE MEASUREMENTS: Left ventricle end diastole: 3.5. Left ventricle end systole: 2.3. Posterior wall: 1.0. Interventricular septum: 1.0. Left atrium: 3.6. Aortic diameter: 3.3. SUMMARY OF 2-DIMENSIONAL IMAGIN. Left ventricular function is normal. Ejection fraction is estimated at 65% to 70%. No wall motion abnormality noted. The right-sided chambers appear to be normal. 2. There is a prominent epicardial fat pad. 3. The pulmonic valve is normal. Color flow mapping indicates a mild degree of regurgitation. 4. The aortic valve has 3 cusps. Color flow mapping is unremarkable 5. The mitral valve shows a mild degree of regurgitation. 6. Pulsed wave Doppler of mitral inflow shows reversal of the E/A ratio. The ratio is 0.6. 7. Tissue Doppler of septal and lateral mitral annulus averages 8 cm. 8. There is no diastolic dysfunction. 9. The tricuspid valve shows a mild degree of regurgitation. Pulmonary pressure is estimated at 51 mmHg. 10.There is no convincing evidence of pericardial effusion. No masses, no thrombus. 11.The inferior vena cava is not dilated. Clinical correlation recommended. cc: Chinmay Granger MD
--- NOTE | 2019-03-04 18:28 | GENERAL SURGERY PROGRESS NOTE ---
DATE: 03/04/2019 It is 4:15 in the afternoon. Ms Nick is now about a week after left carotid endarterectomy for a very high-grade stenosis of her left internal carotid. At the time of the operation, we patched her artery as well. She reports that yesterday she had trouble using her right hand. I guess she was admitted yesterday evening. Today, her ultrasound of her carotids shows our internal carotids wide open and there was no evidence of a problem at the endarterectomized site. Her MRI shows no acute infarct. At my exam, she squeezes both hands. The right side seems a little weaker than the left. Her speech seems to be satisfactory. I did not see any postoperative complication from endarterectomy. Hopefully, she will resolve her symptoms. There is no operative intervention indicated. I would like for her to stay on antiplatelet therapy which would include an aspirin daily. cc: Sabino Syed MD
--- NOTE | 2019-03-04 22:00 | Diag Imaging Result Doc PS360 ---
CT ANGIOGRAM HEAD/NECK - 03/04/2019 INDICATION: neck pain/cva symptoms TECHNIQUE: Axial CT images were obtained after administering intravenous contrast. Three-dimensional angiographic images were generated. COMPARISON: None FINDINGS: On the right side, there is heavy plaque buildup in the common carotid artery with moderate stenosis of about 50% narrowing. At the carotid bifurcation and proximal internal carotid artery there is also moderate stenosis of about 50%. There is moderate plaque buildup in the cavernous portion of the internal carotid artery but not much stenosis. There is moderate stenosis of about 50% narrowing at the supraclinoid internal carotid artery. There is some moderate vascular disease throughout the M1 segment of the right middle cerebral artery mild stenosis of about 30-40% narrowing. On the left side, there is critical stenosis at the origin of the subclavian artery. This indicates there is likely subclavian steal syndrome. There is a bovine arch, with the left common carotid artery arising directly from the brachiocephalic artery. There is no significant stenosis throughout the left common or internal carotid artery. At the cavernous sinus, there is moderate stenosis of about 50-60% narrowing. The anterior and middle cerebral arteries are patent. The right vertebral artery is dominant. There is critical stenosis of the left vertebral artery at the level of C3. There is about 75% narrowing here. The left vertebral artery ends in the posterior inferior cerebellar artery. There is moderate COPD. There is some ill-defined soft tissue edema at the left side of the larynx. There is a very small cystic area within this measuring about 1 cm. This contains a tiny drop of gas inside. The jugular veins are patent. IMPRESSION: 1. Severe vascular disease of the great vessels, the right carotid artery system, left vertebral artery, and the intracranial arteries. There is likely also subclavian steal syndrome on the left. 2. Very small indeterminate gas containing cystic fluid collection at the left side of the neck. There is some surrounding edema. The reason is unclear. This may represent a branchial cleft cyst, which may well be inflamed. This exam was performed using automated exposure control, adjustment of mA or kV according to patient size, and/or use of iterative reconstruction technique Electronically signed by Chip Parmar 03/04/2019 9:57 PM
--- NOTE | 2019-03-05 08:43 | Carotid Study ---
DATE: 03/04/2019 PROCEDURE: Bilateral duplex and color flow imaging of the carotid arteries performed using a GE Vivid E9 Ultrasound System with a 9L-D transducer. REFERRING PHYSICIAN: Carla Del Angel III, MD. Room number is 429, 68-year-old female. INTERPRETING PHYSICIAN: Dede Perez MD. TECH: Rupa Mauricio Radha. INDICATIONS: The patient had a left carotid endarterectomy 1 week ago and presented with right- sided upper extremity numbness, possible weakness, and also headache. OBSERVED DATA RIGHT LEFT Brachial Blood Pressure Carotid Pulse Bruits: Carotid/Sub DIAGRAM OF ULTRASOUND IMAGING R L RIGHT INT EXT INT EXT LEFT Ángel (cm/s) Ángel (cm/s) Subclavian 251/0 Subclavian 185/9 CCA Proximal 118/15 CCA Proximal 145/27 CCA Distal 127/17 CCA Distal 115/22 Bulb 176/23 Bulb 170/28 ICA Proximal 203/34 ICA Proximal 87/13 ICA Mid 242/35 ICA Mid 169/27 ICA Distal 120/26 ICA Distal 132/23 ECA 386/25 ECA 165/15 Vertebral 61/10 Forward flow Vertebral 49/0 Forward flow ICA/CCA Ratio 1.91 ICA/CCA Ratio 1.16 % Stenosis 60-79% % Stenosis 40-59% PHYSICIAN INTERPRETATION: Widely patent left common and internal carotid artery status post left carotid endarterectomy 1 week ago. There is [id number] atherosclerotic disease involving the right carotid system without a hemodynamically significant lesion on that side. cc: MD Carla Palmer III, MD
[2019-03-05] MEDS: ASPIRIN EC PO SCH (09:30)
[2019-03-05] MEDS ORDERED: TYLENOL WITH CODEINE #4 PO PRN (17:17)
[2019-03-05 18:53] LABS: ALB/GLOB RATIO 1.2; ALBUMIN 4.2 g/dL (3.5-5.0); CALCIUM 9.7 mg/dL (8.8-10.2); CREATININE 1.2 mg/dL (0.5-0.9); POTASSIUM 3.5 mmol/L (3.5-5.1); TOTAL BILIRUBIN 0.25 mg/dL (0.20-1.00); TOTAL PROTEIN 7.7 g/dL (6.3-8.3)
[2019-03-05] MEDS ORDERED: ZANAFLEX PO SCH (21:00)
[2019-03-05] MEDS: BUSPAR PO SCH (21:04)
[2019-03-05] MEDS: ZANTAC PO SCH (21:04)
[2019-03-05] MEDS: TOPROL XL PO SCH (21:04)
--- NOTE | 2019-03-06 00:49 | PROGRESS NOTE ---
DATE: 03/05/2019 SUBJECTIVE: The patient has no major complaints. He seems to be better. OBJECTIVE: Vital signs: Blood pressure is 110/57, heart rate 98, respiratory rate 18, temperature 98.5 degrees. Cardiovascular: Regular rate and rhythm. Pulmonary: Bilateral breath sounds, clear to auscultation. Gastrointestinal: Soft, nontender, nondistended. Bowel sounds are positive. Neuro: Unremarkable. LABS: Basic was normal. Creatinine of 1.2. PROBLEM LIST: 1. Transient ischemic attack. We will continue to follow. Does not appear to be any significant cerebrovascular accident. Seems to be doing okay. We will continue supportive measures. 2. Recent carotid endarterectomy per Surgery. We will continue to monitor. Continue aspirin. Continue statin therapy, which the patient is not on right now. DISPOSITION: I anticipate discharge soon. She had an episode this evening of kind of altered mental status. I am suspicious this may be related to multiple of her medications. The nurses found entire bag of medications which had not been resolved and continued, and she took all her own medications, so the likely mechanism of her current issues. cc: Robert Whal MD
[2019-03-06] MEDS: TYLENOL PO PRN ×2 (03:03→11:33)
[2019-03-06 06:44] LABS: HEMATOCRIT 38.7 % (37.0-47.0); HEMOGLOBIN 12.4 g/dL (12.0-16.0); RBC 4.35 XMIL (4.2-5.4); WBC 7.77 X1000 (4.8-10.8)
[2019-03-06 06:45] LABS: BASO# 0.04 X1000 (0.0-0.2); BASO% 0.5 % (0.0-0.8); EOS# 0.17 X1000 (0.0-0.7); EOS% 2.2 % (0.0-10.0); LYMPH# 2.29 X1000 (1.2-3.4); LYMPH% 29.5 % (20.5-51.1); MCH 28.5 PG (27-31); MONO# 0.61 X1000 (0.11-0.59); MONO% 7.9 % (1.7-9.3); NEUT# 4.66 X1000 (1.4-6.5); NEUT% 59.9 % (42.2-75.2); PLT 333 X1000 (130-400)
[2019-03-06] MEDS ORDERED: NEXIUM PO SCH (07:00)
[2019-03-06] MEDS ORDERED: SYNTHROID PO SCH (07:00)
[2019-03-06 07:08] LABS: CALCIUM 9.3 mg/dL (8.8-10.2); POTASSIUM 3.9 mmol/L (3.5-5.1)
[2019-03-06] MEDS: TOPROL XL PO SCH (08:30)
[2019-03-06] MEDS: ASPIRIN EC PO SCH ×2 (08:31→08:35)
[2019-03-06] MEDS: BUSPAR PO SCH (08:31)
[2019-03-06] MEDS: NEURONTIN PO SCH ×3 (08:31→18:00)
[2019-03-06] MEDS ORDERED: LINZESS PO SCH (09:00)
[2019-03-06] MEDS ORDERED: NORVASC PO SCH (09:00)
[2019-03-06] MEDS ORDERED: ZYLOPRIM PO SCH (09:00)
[2019-03-06] MEDS ORDERED: FLOMAX PO SCH (09:00)
[2019-03-06] MEDS ORDERED: ARICEPT PO SCH (09:00)
--- NOTE | 2019-03-06 14:02 | PROGRESS NOTE ---
DATE: 03/06/2019 SUBJECTIVE: Ms. Nick reports noticing difficulty using her right hand briefly yesterday, but she cannot provide details. I am not certain this was significant. I have reviewed Dr. Syed's note. OBJECTIVE: On exam now, she is awake, alert, attentive, oriented. Speech is not dysarthric. Language function is intact on careful bedside testing. Memory is good. She has full visual welsh. Facial motility is symmetric. She has some discomfort in the left shoulder limiting her there. Otherwise, she has symmetric power in the arms. Tone is symmetric in the arms. She did well on [id number] testing bilaterally. She reports good pinprick appreciation over the hands and, if anything, better pinprick appreciation over the right hand than the left. Carotid ultrasound and CTA reports are noted. I do not have any urgent suggestion from a Neurology standpoint. She seems stable now. 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 I told her to report immediately if she has any more focal neurologic problems. Thanks for asking Neurology to see Ms. Nick. cc: MD LINSEY Cheung III
[2019-03-06 17:24] VITALS: BP 125/67
[2019-03-06] MEDS: ZANTAC PO SCH (18:01)
--- NOTE | 2019-03-06 20:06 | DISCHARGE SUMMARY ---
ADMISSION DATE: 03/04/2019 DISCHARGE DATE: 03/06/2019 DISCHARGE ADDENDUM: She is on Zanaflex 4 at bedtime, Zantac 300 at bedtime, allopurinol 100 daily, Ambien as needed, BuSpar 15 b.i.d., Aricept 5 daily, Flomax 0.4 daily, Lasix p.r.n., gabapentin 800 t.i.d., Toprol 100 b.i.d., Nexium 40 daily, Norvasc 5 daily, sinequan 150 t.i.d., Synthroid 100 daily, Tylenol with codeine, Lipitor 40 at bedtime which is new, an aspirin 81 daily, and Linzess 145 daily. cc: Robert Wahl MD
--- NOTE | 2019-03-06 20:25 | DISCHARGE SUMMARY ---
ADMISSION DATE: 03/04/2019 DISCHARGE DATE: 03/06/2019 DISCHARGE DIAGNOSES: 1. Possible transient ischemic attack. 2. Carotid stenosis. 3. Hypertension. Briefly this is a 68-year-old female presenting with right-sided weakness. She has a CABG. She had carotid stenosis of the left and right. Her left side was 89-99%. She had carotid endarterectomy on the . She was admitted for treatment. Her MRI did not show any evidence of stroke. Her echocardiogram was really unremarkable EF 65 to 70 percent. No major pathology otherwise. Her carotid Doppler showed left common was patent with 40 to 59 percent after an endarterectomy and the right was still 60 to 79 which was true before. Dr. Syed was consulted and felt that she did not have any associated issues with her carotid endarterectomy and Dr. Del Angel as well. 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 Small gas containing cystic fluid on the left but there was no clear abscess. There was some edema. She just had surgery about 2 weeks ago. She initially had some neck pain but she has not had any further neck pain. She never had fever and she does not have a white count so patient was felt stable for discharge. We discharged her on her regular medications. I would advise followup with Dr. Syed in a week. He wanted her on anti-platelet therapy and discharge condition is stable. She was to return for any other issues associated with her neurological change. TIME SPENT: 32 minutes. cc: MD Dr. Kunal Palmer Dr.
[2019-03-06] MEDS ORDERED: SINEQUAN PO SCH (21:00)
[2019-03-06] MEDS ORDERED: LIPITOR PO SCH (21:00)
== END 2019-03-06 19:03 | disposition home or self-care (01) | DRG 69 ==
LOC: SUPCPDRO → ED 21:48 → 4N 03-04 04:50
PROVIDERS: ATTEND Internal Medicine
CPT/HCPCS: 70450; 70496; 70498; 70553; 71010; 71045; 80048; 80053; 80101; 80301; 80307; 80324; 80345; 80346; 80353; 80358; 80361; 80365; 81001; 82948; 83992; 84484; 85025; 85610; 93005; 93306; 93880; 94761; 94799; A9270; A9579; G0431; G0434; G0479; G0480; J0131; J2405; J7030; Q9967; XXXXX

== ENCOUNTER 2019-03-07 13:25 | Inpatient (IN) ==
[2019-03-07] MEDS ORDERED: NS 1,000 ML IV PRN (13:46)
--- NOTE | 2019-03-07 14:09 | Diag Imaging Result Doc PS360 ---
EXAM: CHEST-PORTABLE 03/07/2019 HISTORY: stroke like symptoms TECHNIQUE: AP upright at 1404 COMMENT: There is ill-defined opacity in the left costophrenic angle region which is worse than on 03/04/2019. IMPRESSION: Worsening left lower lobe pneumonia. Electronically signed by Morgan Siegel 03/07/2019 2:07 PM
--- NOTE | 2019-03-07 14:20 | Diag Imaging Result Doc PS360 ---
EXAM: CT HEAD W/O CONTRAST 03/07/2019 HISTORY: Stroke like symptoms TECHNIQUE: This exam was performed using automated exposure control, adjustment of mA or kV according to patient size, and/or use of iterative reconstruction technique. COMMENT: The current study is compared with the previous study of 03/03/2019. There are patchy abnormal lucencies in the periventricular white matter particularly in the frontal regions and in the subcortical white matter in the anterior parietal convexity. These abnormalities were apparently present previously, although there may be some decrease in the desai-white contrast in the bladder area. The possibility of a small subacute infarction cannot be excluded.. IMPRESSION: Chronic ischemic microvascular disease with possible evolving subacute infarction in the anterior left parietal cortex. Electronically signed by Morgan Siegel 03/07/2019 2:18 PM
[2019-03-07 14:54] LABS: BASO# 0.04 X1000 (0.0-0.2); BASO% 0.4 % (0.0-0.8); EOS# 0.13 X1000 (0.0-0.7); EOS% 1.3 % (0.0-10.0); HEMATOCRIT 38.6 % (37.0-47.0); HEMOGLOBIN 12.4 g/dL (12.0-16.0); IMM GRAN# 0.03 X1000 (0.0-0.04); IMM GRAN% 0.3 % (0.0-0.5); LYMPH% 28.1 % (20.5-51.1); MCH 28.6 PG (27-31); MCHC 32.1 g/dL (33-37); MCV 88.9 FL (81-99); MONO# 0.78 X1000 (0.11-0.59); MONO% 7.6 % (1.7-9.3); NEUT# 6.45 X1000 (1.4-6.5); NEUT% 62.3 % (42.2-75.2); PLT 341 X1000 (130-400); RBC 4.34 XMIL (4.2-5.4); RDW 12.9 % (11.5-14.5); WBC 10.33 X1000 (4.8-10.8)
[2019-03-07 15:00] LABS: INR 0.86; PROTIME 12.5 Seconds (11.0-16.0)
[2019-03-07 15:01] LABS: PTT 26.4 Seconds (22.3-41.8)
[2019-03-07 15:11] LABS: ALB/GLOB RATIO 1.4; ALBUMIN 4.4 g/dL (3.5-5.0); CALCIUM 9.8 mg/dL (8.8-10.2); POTASSIUM 4.7 mmol/L (3.5-5.1); TOTAL BILIRUBIN 0.21 mg/dL (0.20-1.00); TOTAL PROTEIN 7.5 g/dL (6.3-8.3)
--- NOTE | 2019-03-07 17:59 | PROVIDER DOCUMENTATION ---
This chart was entered by Jenn Perez Scribe, acting as scribe for Bart Harris MD. HPI-Neurological Disorder - General Stated Complaint: STROKE LIKE SX Time Seen by Provider: 03/07/19 13:36 Source: patient, family (daughter), EMS Unable to obtain history due to:: altered Allergies/Adverse Reactions: Patient Allergies Allergy/AdvReac Type Severity Reaction Status Date / Time adhesive tape AdvReac Unknown Verified 03/07/19 15:15 Home Medications: Home Medication List Medication Instructions Recorded Confirmed Last Taken Type Acetaminophen with Codeine 1 tab PO Q8-12H PRN PRN 02/26/18 03/07/19 02/23/19 History [Tylenol with Codeine #4 Tablet] Allopurinol 100 mg PO DAILY 02/26/18 03/07/19 02/23/19 History Doxepin [Sinequan] 150 mg PO QHS 02/26/18 03/07/19 02/23/19 History Gabapentin 800 mg PO TID 02/26/18 03/07/19 02/23/19 History Levothyroxine [Synthroid] 100 microgm PO DAILY 02/26/18 03/07/19 02/23/19 History Donepezil HCl 5 mg PO QPM 08/29/18 03/07/19 02/23/19 History Esomeprazole [Nexium] 40 mg PO DAILY 08/29/18 03/03/19 02/23/19 History Tizanidine [Zanaflex] 4 mg PO Q8H PRN PRN 08/29/18 03/07/19 02/23/19 History Zolpidem Tartrate [Ambien] 0.5 - 1 tab PO HS 08/29/18 03/07/19 02/23/19 History Linaclotide [Linzess] 145 mcg PO DAILY #90 cap 09/01/18 03/07/19 02/10/19 Rx Amlodipine [Norvasc] 5 mg PO BID 02/18/19 03/07/19 02/23/19 22:00 History Buspirone [Buspar] 15 mg PO BID 02/18/19 03/07/19 02/23/19 History Furosemide 20 mg PO PRN PRN 02/18/19 03/03/19 02/22/19 History Metoprolol Succinate 100 mg PO BID 02/18/19 03/03/19 02/23/19 22:00 History Ranitidine HCl [Zantac] 300 mg PO QHS 02/18/19 03/07/19 02/23/19 History Tamsulosin [Flomax] 0.4 mg PO QPM 02/18/19 03/07/19 02/23/19 History Aspirin 81 mg PO DAILY chewtab 02/26/19 03/03/19 Unknown Rx ATORVAstatin [Lipitor] 40 mg PO QHS #30 tab 03/06/19 Unknown Rx - History of Present Illness-Neuro Nature of Presenting Problem: 68 yowf presents to the ed via ems with daughter at bedside. pt daughter sts she noted speech difficulty last night but pt sts it was this am. pt on exam is frustrated and has partial aphasia intermittently. pt had carotid sx 1.5 weeks prior and has been healing well. pt on exam is alert with no weakness noted Severity: reports: moderate Onset/Duration: reports: unsure (possible last night or this am) Timing: reports: still present, intermittent Context: reports: impaired speech. denies: head injury, paresthesia, facial droop Character of Altered Mental Status: reports: agitated, other (partial aphasia) Any recent trauma/injury?: reports: none Character of Deficits: reports: impaired speech New weakness or altered sensation location:: reports: none Cognitive Baseline: alert, oriented x3 Gait Baseline: walks without assistance Associated Symptoms: reports: confusion (following some commands). denies: headache, dizziness, chest pain, neck/back pain, loss of consciousness, nausea, seizures, slurred speech, vomiting, vision changes, weakness Similar Symptoms Previously?: No Recently seen or treated by another doctor?: No Review of Systems - Adult - REVIEW OF SYSTEMS - ADULT ROS:: limited per condition (trouble comprehemding some questions) Constitutional: denies: chills, fever Eyes: reports: no symptoms reported Ears, Nose, Mouth & Throat: reports: no symptoms reported Cardiovascular: denies: chest pain, palpitations, syncope Respiratory: denies: cough, shortness of breath, wheezing Gastrointestinal: denies: abdominal pain, diarrhea, nausea, vomiting Genitourinary: reports: no symptoms reported Musculoskeletal: reports: no symptoms reported Integumentary: reports: no symptoms reported Neurological: reports: see HPI, numbness (bilateral face), other (partial aphasia). denies: dizziness/vertigo, headache/migraines, paresthesia, slurred speech, syncope Psychiatric: reports: no symptoms reported Endocrine: reports: no symptoms reported Hematologic/Lymphatic: reports: no symptoms reported Allergic/Immunologic: reports: no symptoms reported All Other Systems: Reviewed and Negative Past History - Adult - PAST MEDICAL HISTORY-ADULT Review of Records: reports: Old Records Reviewed, Nursing Assessment Review, Medications Reviewed, Social history reviewed & non-contributory. Major Childhood Illnesses: reports: denies history Cardiovascular: reports: CAD, HTN Respiratory: reports: COPD Gastrointestinal: reports: GERD Obstetrical/Gynecological: reports: denies history Genitourinary: reports: denies history Musculoskeletal: reports: arthritis Hand Dominance: Right Handed Neurological: reports: dementia Psychiatric: reports: denies history Endocrine/Immune: reports: Diabetes, thyroid disorder Diabetes Type: Type 2 Other Conditions: reports: denies history - PRIOR SURGERIES/PROCEDURES Surgical/Procedure History: reports: recent surgery (recent neck sx), CABG, hysterectomy, joint replacement - IMMUNIZATION STATUS Childhood Immunizations: See Nurse Assessment Flu Vaccine: See Nurse Assessment - FAMILY HISTORY Family History: reviewed, not pertinent - SOCIAL HISTORY Smoking: cigarettes, less than 1 pack/day Provider spent 3-5 mins advising pt. on dangers of tobacco.: Discussed manners to quit use, and f/u contacts for add'l counseling. Substance Use: denies Alcohol Use Frequency: never Living Situation: family Physical Exam- Neurological - Physical Exam-Neuro Exam Limited by: pt is slow to comprehend some questions Initial Vital Signs Reviewed: Yes General Appearance: appears well, alert, no apparent distress, obese, other (slow to comprehend some questions) Eye Exam: bilateral eye: normal inspection, PERRL, EOMI HENMT: moist mucous membranes, other (no teeth) Head Injury: no evidence of injury Neck: non-tender, full range of motion, supple, other (well healed scar noted to left anterior neck from recent carotid sx) Respiratory: chest non-tender, lungs clear, normal breath sounds Cardiovascular: normal peripheral pulses, regular rate, rhythm Abdominal Exam: normal bowel sounds, non tender, soft Lymphatic: no adenopathy Extremity: normal range of motion, normal capillary refill, 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 negative: EOM palsy, facial droop, focal weakness, motor weakness Integumentary: normal color, normal turgor, warm/dry - Glascow Coma Scale Best Eye Response: (4) open spontaneously Best Verbal Response: (4) confused conversation Best Motor Response: (6) obeys commands Total Glascow Score: 14 Progress - PLAN OF CARE/RESULTS Progress/Plan/Lab Results: Vital Signs - 8 hr 03/07/19 14:00 Temperature 98.6 F Pulse Rate 88 Respiratory Rate 13 Blood Pressure 147/85 O2 Sat by Pulse Oximetry 92 L Laboratory Results - last 24 hr 03/07/19 03/07/19 03/07/19 14:40 14:40 14:40 WBC 10.33 RBC 4.34 Hgb 12.4 Hct 38.6 MCV 88.9 MCH 28.6 MCHC 32.1 L RDW Std Deviation 12.9 Plt Count 341 MPV 10.0 Immature Gran % (Auto) 0.3 Neut % (Auto) 62.3 Lymph % (Auto) 28.1 Canyon % (Auto) 7.6 Eos % (Auto) 1.3 Baso % (Auto) 0.4 Immature Gran # (Auto) 0.03 Neut # (Auto) 6.45 Lymph # (Auto) 2.90 Canyon # (Auto) 0.78 H Eos # (Auto) 0.13 Baso # (Auto) 0.04 PT 12.5 INR 0.86 PTT (Actin FS) 26.4 Sodium 136 Potassium 4.7 D Chloride 97 L Carbon Dioxide 26 Anion Gap 13 BUN 20 D Creatinine 2.0 H Estimated GFR/1.73 m2 25 BUN/Creatinine Ratio 10 Glucose 109 H Calculated Osmolality 275 Calcium 9.8 Total Bilirubin 0.21 AST 24 ALT 15 Alkaline Phosphatase 147 H Troponin T Total Protein 7.5 Albumin 4.4 Globulin 3.1 Albumin/Globulin Ratio 1.4 03/07/19 14:40 WBC RBC Hgb Hct MCV MCH MCHC RDW Std Deviation Plt Count MPV Immature Gran % (Auto) Neut % (Auto) Lymph % (Auto) Canyon % (Auto) Eos % (Auto) Baso % (Auto) Immature Gran # (Auto) Neut # (Auto) Lymph # (Auto) Canyon # (Auto) Eos # (Auto) Baso # (Auto) PT INR PTT (Actin FS) Sodium Potassium Chloride Carbon Dioxide Anion Gap BUN Creatinine Estimated GFR/1.73 m2 BUN/Creatinine Ratio Glucose Calculated Osmolality Calcium Total Bilirubin AST ALT Alkaline Phosphatase Troponin T < 0.010 Total Protein Albumin Globulin Albumin/Globulin Ratio Orders Category Date Time Status Cardiac Monitoring DIRECTED Care 03/07/19 13:46 Active Finger Stick Blood Sugar (ED) DIRECTED Care 03/07/19 13:46 Active Misc. NRSG Communication Order DIRECTED Care 03/07/19 13:46 Active Saline Loc NOW Care 03/07/19 13:46 Active CHEST-PORTABLE [RAD] Stat Exams 03/07/19 13:[address] HEAD W/O CONTRAST [CT] Stat Exams 03/07/19 13:43 Completed CBC WITH ELECTRONIC DIFF [HEME] Stat Lab 03/07/19 14:40 Completed COMPREHENSIVE METABOLIC PANEL [CHEM] Stat Lab 03/07/19 14:40 Completed PROTIME WITH INR [COAG] Stat Lab 03/07/19 14:40 Completed PTT [COAG] Stat Lab 03/07/19 14:40 Completed TROPONIN T Stat Lab 03/07/19 14:40 Completed URINALYSIS W/POSS RFLX CULT [URINALYSIS] Stat Lab 03/07/19 17:53 Ordered URINE DRUG SCREEN Stat Lab 03/07/19 17:53 Ordered 0.9% Sodium Chloride Inj [Ns] 1,000 ml Med 03/07/19 13:46 Active IV 80 mls/hr EKG [EKG] Stat Ther 03/07/19 13:46 Ordered Result Diagrams: 03/07/19 14:40 03/07/19 14:40 - REASSESSMENT Reassessment #1 Time Reassessed: 15:04 (speaking more words now, but sentences do not all make sense) Reassessment #2 Time Reassessed: 17:45 (Family @ bedside. This is her 3rd similar episode. The first was sev days after endartectomy, she was hosp here for a week. She had the second 2 days ago, she was discharged yest. The family present say she is Not back to normal, but they have never seen one of the episodes @ onset. She has R hand/arm weakness, loss of use @ onset of sx) - EKG 1 Time of EKG reading by physician:: 14:18 EKG Read and Signed by:: Bart Harris EKG Interpretation (*Must complete 3 of following elements*): Abnormal Rate: 81 Rhythm: nsr Leedey: normal QRS: other (possible left atrial enlargement) ID Interval: normal ST Wave: normal Comments: nonspecific T wave abnormality - XRAY 1 XRAY: Bilateral XRAY Study: Chest Impression: See EMR Report (EXAM: CHEST-PORTABLE 03/07/2019 HISTORY: stroke like symptoms TECHNIQUE: AP upright at 1404 COMMENT: There is ill-defined opacity in the left costophrenic angle region which is worse than on 03/04/2019. IMPRESSION: Worsening left lower lobe pneumonia. Electronically signed by Morgan Siegel 03/07/2019 2:07 PM 03/07/19 1407 Interpreting Physician: Morgan Siegel MD Dictated Date/Time: 03/07/19 1406 cc: Bart Harris MD; Jenni Dejesus) - CT/MRI 1 CT Study: Head Impression: See EMR Report (EXAM: CT HEAD W/O CONTRAST 03/07/2019 HISTORY: Stroke like symptoms TECHNIQUE: This exam was performed using automated expos ure control, adjustment of mA or kV according to patient size, and/or use of iterative reconstruction technique. COMMENT: The current study is compared with the previous study of 03/03/2019. There are patchy abnormal lucencies in the periventricular white matter particularly in the frontal regions and in the subcortical white matter in the anterior parietal convexity. These abnormalities were apparently present previously, although there may be some decrease in the desai-white contrast in the bladder area. The possibility of a small subacute infarction cannot be excluded.. IMPRESSION: Chronic ischemic microvascular disease with possible evolving subacute infarction in the anterior left parietal cortex. Electronically signed by Morgan Siegel 03/07/2019 2:18 PM 03/07/19 1418 Interpreting Physician: Morgan Siegel MD Dictated Date/Time: 03/07/19 1414 cc: Bart Harris MD; Jenni Dejesus) - CONSULTS/PCP/HOSPITALIST Notification #1 *Consult/PCP/Hospitalist*: Aprilabdiel Time Discussed: 17:59 Consult Disposition: Will see in ED, Admit Departure - Departure Date of Disposition Decision: 03/07/19 Time of Disposition Decision: 17:54 DIAGNOSIS: Transient ischemic attack (TIA) Disposition: ADMITTED INPATIENT 09 Certified Medical Emergency: Emergent Condition: Good Additional Freetext Instructions: ED Follow Up Instructions: You have been treated by a care provider in the Emergency Department. These instructions are being provided to you so you can have an understanding of how to care for yourself upon discharge. Upon discharge from the Emergency Department, you are responsible for making arrangements for follow-up care by a physician of your choice. Take all prescribed medications as directed. Return to the Emergency Department immediately for any new or worsening symptoms. You may call the Physician Referral phone number at [phone] to obtain a list of Physicians who are taking new patients. Referrals and Follow-Ups: Jenni Dejesus [Primary Care Provider] - Discharge Education: Steps to Quit Smoking, [id number] - Critical Care Note This patient required my direct & personal management of CC.: Yes Total Time (mins): 35 (re-eval, talk with family) Critical Care Statement: This patient required my direct personal management to treat or rule out processes, the absence of which, could potentiallly result in sudden, clinically significant life or limb threatening deterioration. Attestation - Physician/ RADHA Attestation Patient care was provided by Advanced Practice Provider:: No The physician spent face to face time with patient:: Yes Advanced Practice Provider documentation review:: Supervising physician onsite and consulted in the evaluation and care of this patient. The physician did have a face to face encounter with the patient. - NIH Stroke Scale NIH Type: Initial Evaluation Level of Consciousness: 0-Alert Best Gaze (horizontal eye movement): 0-Normal Visual (use finger movement, counting or visual threat): 0-No Visual Loss Facial Palsy (show teeth or raise eyebrows & close eyes tght: 0-Symmetrical Movement Motor Function-left arm: 0-Normal Motor Function-right arm: 0-Normal Motor Function-left le-Normal Motor Function-right le-Normal Limb Ataxia([id number], or heel to cason): 0-No Ataxia Sensory(pin prick to face,arms,trunk,legs-compare side/side): 0-No Ataxia Best Language(name item/read sentence.Ex-Down to Earth): 2-Severe Aphasia Dysarthria(Pt read words or say words Ex.Mama,Tip-Top,Thanks: 1-Mild-Mod Slurring Words NIH Scale Untestable Comment: only can say yes, no, and even then, answers inconsistent Stroke tPA Guidelines - Inclusion Criteria for IV tPA 18 years old or older: Yes Ischemic stroke with measurable deficit: Yes Onset <3 hours ago *OR* 3-4.5 hours ago: No - Exclusion Criteria for IV tPA Evidence of intracranial hemorrhage on CT: No Presentation suggest SAH: No CT reveals defined area of hypodensity: Yes Evidence of AVM, neoplasm, aneurysm: No Seizure at stroke onset: No Active internal bleeding or acute trauma: No This chart was documented by the indicated scribe, (Jenn Perez Scribe) and accurately reflects the services I performed and decisions made by me, Bart Harris MD, as attested by the provider's signature.
[2019-03-07 18:00] LABS: URINE SOURCE CLEAN CATCH
[2019-03-07 18:01] LABS: BILIRUBIN URINE NEGATIVE (NEGATIVE); BLOOD URINE NEGATIVE (NEGATIVE); COLOR YELLOW; GLUCOSE URINE NEGATIVE (NEGATIVE); KETONE URINE NEGATIVE (NEGATIVE); LEUKOCYTES URINE TRACE (NEGATIVE); NITRITE URINE NEGATIVE (NEGATIVE); PH URINE 5.5; PROTEIN URINE 30 mg/dL (NEGATIVE); SP GRAVITY URINE 1.022; TURBIDITY URINE HAZY (CLEAR); UR EPITHELIAL CELLS <10 /HPF (<10); URINE BACTERIA NEGATIVE /HPF; URINE RBC <10 /HPF (<10); URINE WBC <10 /HPF (<10); UROBILINOGEN URINE NORMAL (NORMAL)
[2019-03-07 18:17] LABS: UR AMPHETAMINES QUAL NONE DETECTED (NONE DETECT); UR BARBITUATES QUAL NONE DETECTED (NONE DETECT); UR BENZODIAZEPIN QUAL NONE DETECTED (NONE DETECT); UR CANNABINOIDS QUAL NONE DETECTED (NONE DETECT); UR COCAINE QUAL NONE DETECTED (NONE DETECT); UR METHADONE QUAL NONE DETECTED (NONE DETECT); UR OPIATES QUAL PRESUMPTIVE POSITIVE (NONE DETECT); UR OXYCODONE QUAL NONE DETECTED (NONE DETECT); UR PCP QUAL NONE DETECTED (NONE DETECT)
[2019-03-07] MEDS ORDERED: ZOFRAN IV PRN (18:28)
[2019-03-07] MEDS ORDERED: AMBIEN PO PRN (18:48)
[2019-03-07] MEDS ORDERED: NS 1,000 ML IV ONE (18:48)
[2019-03-07] MEDS ORDERED: ROCEPHIN 1 GM in NS 50 ML IV ONE (18:56)
[2019-03-07] MEDS: DUONEB (A & A) INH SCH (19:23)
--- NOTE | 2019-03-07 19:47 | HISTORY AND PHYSICAL ---
HISTORY OF PRESENT ILLNESS: She is a patient of Dr. Jenni Dejesus. She was just admitted back on 03/04/2019. She is a 68-year-old who had been discharged from our facility a couple weeks earlier after undergoing a left carotid endarterectomy with patch angioplasty. This was actually on 02/22/2019. She did have a carotid ultrasound prior to this. It showed high-grade left internal carotid stenosis. She has stable right-sided severe stenosis as well that is 60% to 79%, and this appeared to be stable. After discharge from her carotid enterectomy, she came back on 03/04/2019. She had been having some shortness of breath. She denied any cough. Reported that the left side of her neck felt a little tighter. She had been reporting some blurry vision as well as what sounded like expressive aphasia. The patient had a headache which radiated in the frontal area and extended up over the back of her head on the left side. They reported that she knew what she wanted to say but had a difficult time saying it. She came in to the hospital and was discharged yesterday evening. Her MRI did not show any evidence of stroke. Echocardiogram was really unremarkable. Ejection fraction was 65% to 70%. The MRI on the right showed 60% to 79% consistent with measurements before when Dr. Syed and Dr. Del Angel had evaluated her. Did a CT of the head and neck in addition to an MRI which showed severe vascular disease in the right carotid, and there was concern over subclavian steal syndrome. Small gas-containing cystic fluid on the left, but there was no clear abscess, and there was some edema. Initially she had some neck pain, but that seemed to resolve. PAST MEDICAL HISTORY: 1. Coronary artery bypass graft, 4-vessel bypass. 2. COPD. 3. Dementia. 4. Diabetes mellitus type 2. 5. Hypertension. 6. Hypothyroidism. 7. Gout. 8. Bilateral carotid bruits, bilateral stenosis. The patient's most recent measurements had showed critical stenosis at 80% to 99% percent on the left and right-sided stenosis as well as subclavian steal, but the right-sided carotid stenosis was 60% to 79%. Status post left endarterectomy per Dr. Syed. PAST SURGICAL HISTORY: 1. Coronary artery bypass graft x4. 2. Hysterectomy. 3. Left total knee replacement. 4. Recent left carotid endarterectomy on the . 5. Tubal ligation. 6. Had abdominal surgery which was secondary to abscess by report. SOCIAL HISTORY: Former smoker, smoked for approximately 30 years. She did quit smoking in 1996. No known alcohol or illicit drugs. FAMILY HISTORY: Positive for father having history of heart disease. Mother had a history of heart disease and diabetes mellitus. ALLERGIES: Allergic to adhesive tape. MEDICATIONS: We will review her medications. REVIEW OF SYSTEMS: The report is that she just was released from the hospital yesterday, and then this morning she felt like she was weak, but the main problem was she could not express her thoughts, and had difficulty formulating words. Family states she is a little better since she came into the emergency room. She is able to complete sentences, but she is struggling to find words. She does seem to understand me perfectly as far as my questions, and her responses are appropriate. No report of recent weight gain or loss. No fever or chills. PHYSICAL EXAMINATION: HEENT: She does not report any visual change or change in hearing acuity. RESPIRATORY: No increased work of breathing or dyspnea. CARDIOVASCULAR: No chest pain or tachy palpitation. GI: Unremarkable. : Unremarkable. MUSCULOSKELETAL: Unremarkable. NEUROLOGIC: As noted above. ENDOCRINOLOGIC/HEMATOLOGIC: No significant history. PHYSICAL EXAMINATION: VITAL SIGNS: In the emergency room, temperature 98.6 degrees, pulse 88, respirations 13, blood pressure 147/85. Pupils are equal and round. LUNGS: Clear in all lung welsh. CARDIOVASCULAR: Regular rhythm and rate without murmur or S3. ABDOMEN: Soft. SKIN: Warm and dry. NEUROLOGIC: Tongue is midline. No facial asymmetry. Shoulder shrug is symmetrical and strong. She seems to have equal hand inclusion manager. Fine finger motion seems to be equal, although she does not have real good finger dexterity on either side. The left foot seems to be a little weaker in dorsiflexion. She can lift both legs off the bed. She is moving both arms. LABORATORY DATA: White count 10,330, hematocrit is 38, platelet count is 341. Sodium 136, potassium 4.7, chloride 97, BUN 20, creatinine 2.0. Blood sugar 109, calcium 9.8. AST 24, ALT 15, alkaline phosphatase 147. Troponin less than 0.01. Albumin 4.4. ProTime is 12.5, INR is 0.86, PTT is 26. Urine toxicology: She is positive for opiates, negative for oxycodone, methadone, barbiturates, phencyclidine, amphetamines, benzodiazepines, cocaine and cannabinoids. Urine was unremarkable. Chest x-ray: Worsening left lower lobe infiltrate. CT of her head without contrast: Chronic ischemic microvascular disease with possibly evolving subacute infarction in the anterior left parietal cortex. ASSESSMENT AND PLAN: 1. Expressive aphasia. It seems to be improving. There is a questionable area in the left anterior left parietal cortex that could possibly be an evolving subacute cerebrovascular accident. She is already on aspirin. We will continue the aspirin at 81 mg a day and start her on Plavix as well. We will be tolerant of blood pressure. We would like it to be up in the 140s and 150s, so I am probably going to hold the amlodipine, and we will put her on a monitor. We will check an EKG tonight and in the morning. She has had a recent carotid Doppler on 03/04/2019, and on the right side it is 60% to 79%. This appears to be stable. On the left side, it is 40% to 59%, status post endarterectomy, and that appears to be stable as well. She has had an echocardiogram done on 03/04. Left ventricular function was good with ejection fraction 65% to 70%. No wall motion abnormalities. No sign of valvular dysfunction we are aware of. Apparently, left subclavian steal. 2. History of coronary artery disease. Aware. Status post coronary artery bypass graft, 4 vessel. No sign of active cardiac ischemia. We will check troponin and CK. 3. Diabetes mellitus type 2. We will pattern her sugars, put her on sliding scale. 4. Hypertension, aware. We are going to have tolerant blood pressure, letting her systolics get in the 150s 160s if necessary. 5. History of hypothyroidism. We will check her T4 and TSH. Continue present Synthroid. 6. Gout. Aware. 7. Peripheral vascular disease with bilateral carotid stenosis, status post left carotid endarterectomy. REVIEW OF CURRENT MEDICATIONS: 1. I will keep her on the Lipitor. We will check another lipid panel in the morning. 2. She does have a history of gout, so will continue allopurinol 100 mg a day. 3. She is taking Tylenol with codeine every 8 to 12 hours p.r.n. th acetaminophen. I guess we can continue that for pain. 4. We will hold her Norvasc. 5. Will give her the aspirin 81 mg a day. 6. BuSpar. She is on 15 mg p.o. b.i.d. We will continue that. 7. Donepezil. We will continue 5 mg every evening. 8. She takes Sinequan 150 mg p.o. at bedtime. We will continue that. 9. Nexium 40 mg a day. 10. I think I will hold the furosemide. She is taking 20 mg as needed. 11. Gabapentin 800 mg p.o. t.i.d. I guess we will continue that for now. 12. Synthroid 100 mcg p.o. daily. Continue Linzess 145 mcg p.o. daily. 13. We will continue the metoprolol succinate 100 mg p.o. b.i.d. We will cut that down to 50 mg b.i.d. 14. Zantac 300 mg at bedtime. 15. Flomax 0.4 mg every evening will be continued. 16. We will hold the muscle relaxer for now. 17. She takes Ambien for sleep. I guess we will continue that. We will have to find out the dose. REVIEW OF LABS: 1. I do not see anything unremarkable. We are going to check a B12 and folate, T4 and TSH. We will check an a.m. cortisol level. We will check a.m. hemoglobin A1c and lipid profile. Note that her creatinine was 2.0, but it was 1.0 just a couple days ago, so acute renal or kidney injury with a normal ventricle. I think we need to give her some fluids. We will give her normal saline. Will run it at 100 mL an hour, and we will plan on putting her in the [facility]. cc: Wilian Way MD
--- NOTE | 2019-03-07 19:49 | HISTORY AND PHYSICAL ---
ADDENDUM: She had an infiltrate on her x-ray, so we will treat her for lobar community-acquired pneumonia. She was in the hospital recently, but I think we are okay using Rocephin 1 gram every 24 hours. We will give her some DuoNebs. cc: Wilian Way MD
[2019-03-07] MEDS ORDERED: LIPITOR PO SCH (21:00)
[2019-03-07] MEDS: BUSPAR PO SCH (21:17)
[2019-03-07] MEDS: LOPRESSOR PO SCH (21:17)
[2019-03-07] MEDS: ARICEPT PO SCH (21:17)
[2019-03-07] MEDS: FLOMAX PO SCH (21:17)
[2019-03-07] MEDS: LIPITOR PO SCH (21:17)
[2019-03-07] MEDS: HUMULIN R SUBQ SCH (21:21)
[2019-03-07] MEDS: SINEQUAN PO SCH (22:04)
[2019-03-07] MEDS: PLAVIX PO SCH (22:05)
[2019-03-08 05:49] LABS: BASO# 0.03 X1000 (0.0-0.2); BASO% 0.6 % (0.0-0.8); EOS# 0.13 X1000 (0.0-0.7); EOS% 2.4 % (0.0-10.0); HEMATOCRIT 33.4 % (37.0-47.0); HEMOGLOBIN 10.6 g/dL (12.0-16.0); LYMPH# 1.93 X1000 (1.2-3.4); LYMPH% 35.7 % (20.5-51.1); MCH 28.3 PG (27-31); MCHC 31.7 g/dL (33-37); MCV 89.1 FL (81-99); MONO% 9.3 % (1.7-9.3); NEUT# 2.81 X1000 (1.4-6.5); PLT 303 X1000 (130-400); RBC 3.75 XMIL (4.2-5.4)
[2019-03-08 06:04] LABS: HEMOGLOBIN A1C 5.3 % (4.8-6.0)
[2019-03-08 06:25] LABS: CALCIUM 9.1 mg/dL (8.8-10.2); CREATININE 1.3 mg/dL (0.5-0.9); POTASSIUM 3.8 mmol/L (3.5-5.1)
[2019-03-08] MEDS: SYNTHROID PO SCH (06:28)
[2019-03-08 06:35] LABS: FREE T4 0.97 ng/dL (0.93-1.70); TSH 0.29 uIUmL (0.27-4.20)
[2019-03-08] MEDS: DUONEB (A & A) INH SCH ×6 (07:20→23:14)
[2019-03-08] MEDS: HUMULIN R SUBQ SCH ×3 (07:35→16:16)
[2019-03-08] MEDS: NEURONTIN PO SCH ×3 (08:33→20:49)
[2019-03-08] MEDS: ASPIRIN PO SCH (08:33)
[2019-03-08] MEDS: PLAVIX PO SCH (08:33)
[2019-03-08] MEDS: LOPRESSOR PO SCH ×2 (08:33→20:47)
[2019-03-08] MEDS: NEXIUM PO SCH (08:34)
[2019-03-08] MEDS: BUSPAR PO SCH ×2 (08:34→20:47)
[2019-03-08] MEDS: LINZESS PO SCH (08:34)
[2019-03-08] MEDS: TYLENOL PO PRN (08:34)
[2019-03-08] MEDS: ZYLOPRIM PO SCH (08:34)
--- NOTE | 2019-03-08 16:47 | PROGRESS NOTE ---
DATE: 03/08/2019 Her speech is about the same. Moving extremities well. I do not see any other left-sided or lateralizing deficit. She is performing sentences. She is communicating pretty well, still having trouble searching for words. OBJECTIVE: Vitals: Temperature 98.3 degrees, pulse 84, respirations 17, blood pressure 179/60. Eyes: Pupils are equal, round. Lungs: Clear in all lung welsh. Cardiovascular: Regular rhythm and rate without murmur or S3. LABS: Urine output 2400 mL. Blood sugar 100 and 129. ASSESSMENT AND PLAN: 1. Expressive aphasia. Suspect left hemisphere ischemia. It seems to wax and wane a little bit as we do know she has left subclavian steal. Aware. I did add Plavix to her regimen. We will see if she can swallow okay and start p.o. intake. 2. History of coronary artery disease status post coronary artery bypass graft x4. 3. Diabetes mellitus type 2. 4. Hypertension. Blood pressure seemed to be optimal between 140 and 180. Clinically, she has improved. Advance to soft diet after we do a swallow study. Her lab work reviewed. Hematocrit 33, hemoglobin 10. Blood sugars have been 100 and 110. I did note that a.m. cortisol seemed a little bit low. We will initiate physical therapy and speech therapy tomorrow. cc: Wilian Way MD
[2019-03-08] MEDS: ARICEPT PO SCH (20:47)
[2019-03-08] MEDS: LIPITOR PO SCH (20:47)
[2019-03-08] MEDS: FLOMAX PO SCH (20:47)
[2019-03-08] MEDS: ROCEPHIN 1 GM in NS 50 ML IV SCH (20:47)
[2019-03-08] MEDS: SINEQUAN PO SCH (20:48)
[2019-03-09] MEDS: HUMULIN R SUBQ SCH ×5 (01:35→20:13)
[2019-03-09] MEDS: SYNTHROID PO SCH (06:15)
[2019-03-09] MEDS: DUONEB (A & A) INH SCH ×5 (07:52→23:55)
--- NOTE | 2019-03-09 08:03 | EKG Report ---
Test Performed on : 03/07/2019 2:18:02 PM Test Reason : Stroke like symptoms Blood Pressure : / mmHG Vent. Rate : 081 BPM Atrial Rate : 081 BPM P-R Int : 142 ms QRS Dur : 072 ms QT Int : 398 ms P-R-T Axes : 024 037 066 degrees QTc Int : 462 ms Normal sinus rhythm. Possible Left atrial enlargement Nonspecific T wave abnormality Abnormal ECG When compared with ECG of 03-MAR-2019 22:17, (Unconfirmed) Nonspecific T wave abnormality no longer evident in Inferior leads Unconfirmed Result
[2019-03-09] MEDS: ASPIRIN PO SCH (09:07)
[2019-03-09] MEDS: BUSPAR PO SCH ×2 (09:08→20:09)
[2019-03-09] MEDS: NEURONTIN PO SCH ×3 (09:08→18:14)
[2019-03-09] MEDS: NEXIUM PO SCH (09:08)
[2019-03-09] MEDS: ZYLOPRIM PO SCH (09:08)
[2019-03-09] MEDS: LOPRESSOR PO SCH ×2 (09:08→20:09)
[2019-03-09] MEDS: PLAVIX PO SCH (09:08)
[2019-03-09] MEDS: LINZESS PO SCH (09:08)
--- NOTE | 2019-03-09 10:15 | PROGRESS NOTE ---
DATE: 03/09/2019 SUBJECTIVE: Ms. Nick says she is doing better. Speech seems to be better. She is tolerating her food. She does feel tired. She is not sleeping real good at night. OBJECTIVE: Vital Signs: Temp 98.2 degrees, pulse 88, respirations 19, blood pressure 148/61. HEENT: Pupils are equal and round. Lungs: Clear in all lung welsh. Cardiovascular: Regular rhythm and rate without murmur or S3. Abdomen: Soft. Skin: Warm and dry. LABORATORY DATA: Blood sugars 100, 129, 151. ASSESSMENT AND PLAN: 1. Expressive aphasia, which is improved. Suspect left hemisphere ischemia. We have added Plavix to the regimen. She does have documented left subclavian steal. She is wanting to go home and can possibly go home this afternoon. 2. Coronary artery disease, status post coronary artery bypass graft x4. 3. Diabetes mellitus type 2. 4. Hypertension. Blood pressures appear to be well controlled. I have purposely backed down on some of her blood pressure medicines to allow good perfusion. She is on Lipitor 40 mg a day, Sinequan 150 mg at bedtime, allopurinol 100 mg a day, aspirin 81 mg a day, BuSpar 50 mg b.i.d., Plavix 75 mg a day, Aricept 5 mg every p.m., Nexium 40 mg a day, Neurontin 800 mg p.o. t.i.d., Synthroid 100 mcg p.o. daily, Linzess 145 mg p.o. daily, Lopressor we cut down to 50 mg b.i.d., Flomax 0.4 mg every p.m., Ambien 5 mg at bedtime. Note, her chest x-ray on admission showed a left lower lobe infiltrate, so will repeat another chest x-ray today, see if we can get a PA and lateral. cc: Wilian Way MD
--- NOTE | 2019-03-09 13:18 | Diag Imaging Result Doc PS360 ---
EXAM: CHEST-2 VIEWS HISTORY: LLL pneumonia TECHNIQUE: Chest two views COMPARISON: 03/07/2019 FINDINGS: The lungs are well expanded. The heart is not enlarged. There are sternal wires and surgical clips. The vessels are not distended. There are no infiltrates. No pleural effusions. Severe atherosclerosis. IMPRESSION: No pneumonia on the current exam. Electronically signed by Rodrigue Martínez 03/09/2019 1:15 PM
[2019-03-09] MEDS: LIPITOR PO SCH (20:09)
[2019-03-09] MEDS: SINEQUAN PO SCH (20:09)
[2019-03-09] MEDS: FLOMAX PO SCH (20:09)
[2019-03-09] MEDS: ARICEPT PO SCH (20:09)
[2019-03-09] MEDS: ROCEPHIN 1 GM in NS 50 ML IV SCH (23:36)
[2019-03-10] MEDS: HUMULIN R SUBQ SCH ×4 (06:09→20:49)
[2019-03-10] MEDS: SYNTHROID PO SCH (06:09)
[2019-03-10] MEDS: DUONEB (A & A) INH SCH ×5 (08:02→23:08)
[2019-03-10] MEDS: TYLENOL PO PRN ×2 (08:37→22:47)
[2019-03-10] MEDS: ASPIRIN PO SCH (08:52)
[2019-03-10] MEDS: LINZESS PO SCH (08:53)
[2019-03-10] MEDS: LOPRESSOR PO SCH ×2 (08:53→20:48)
[2019-03-10] MEDS: BUSPAR PO SCH ×2 (08:53→20:48)
[2019-03-10] MEDS: NEXIUM PO SCH (08:54)
[2019-03-10] MEDS: ZYLOPRIM PO SCH (08:54)
[2019-03-10] MEDS: NEURONTIN PO SCH ×3 (08:54→20:48)
[2019-03-10] MEDS: PLAVIX PO SCH (08:54)
--- NOTE | 2019-03-10 17:45 | PROGRESS NOTE ---
DATE: 03/10/2019 INTERVAL HISTORY: No acute events overnight. SUBJECTIVE: She is feeling fine. She denies any complaints. Her daughter is at bedside. The patient states she feeling significantly better. However, she still has some word-finding difficulty. She denies any weakness of upper extremity or lower extremity. VITAL SIGNS: Temperature 98.1 degrees, pulse 76, respiratory rate 20, blood pressure 120/58, saturating 95% room air. PHYSICAL EXAMINATION: General: Does not appear in any acute distress. HEENT: Oral cavity is moist. Respiratory: Air entry bilaterally equal. No wheeze, rhonchi or crackles. Cardiovascular: S1, S2 normal. No murmur or gallop. Abdomen: Soft, nontender. No lower extremity edema. Neurologic: She is alert and oriented x3. General examination is nonfocal. She has intact cough. Speech appears normal. Power 5/5 bilateral upper and lower extremity. Sensation is intact bilaterally. LABORATORY DATA: Unremarkable. No new microbiological data. IMAGING: No new imaging data. ASSESSMENT AND PLAN: 1. Expressive aphasia presentation which has significantly improved. Continue dual anti-platelet with aspirin and Plavix. I will appreciate Neurology recommendation about continuing these for at least 3 months considering her recurrent symptoms. 2. Suspected left-sided subclavian steal phenomenon based on CT scan finding on 03/04/2019. However, ultrasound of neck had antegrade flow in her left vertebral artery, so this is unlikely as per my brief discussion with vascular surgery. She is now status post left-sided carotid endarterectomy. 3. Left lower lobe pneumonia. Continue intravenous ceftriaxone and change to p.o. levofloxacin tomorrow. 4. Others. Continue high-dose atorvastatin, aspirin, metoprolol for history of coronary artery disease status post CABG in the past; continue doxepin and buspirone for history of anxiety and depression; continue allopurinol for chronic gout; donepezil for cognitive impairment; esomeprazole for GERD; gabapentin for neuropathic pain; levothyroxine for hypothyroidism. 5. Disposition. I will monitor patient for another 24 hours. We will have a neurology opinion tomorrow and based on that plan, discharge on dual anti-platelet therapy. Plan of care discussed with the patient and her daughter at bedside. All of their questions have been answered. cc: Galileo Davis MD
[2019-03-10] MEDS: SINEQUAN PO SCH (20:47)
[2019-03-10] MEDS: ARICEPT PO SCH (20:47)
[2019-03-10] MEDS: LIPITOR PO SCH (20:48)
[2019-03-10] MEDS: FLOMAX PO SCH (20:49)
[2019-03-10] MEDS: ROCEPHIN 1 GM in NS 50 ML IV SCH (20:49)
[2019-03-11] MEDS: HUMULIN R SUBQ SCH ×3 (05:59→16:49)
[2019-03-11] MEDS: SYNTHROID PO SCH (06:00)
[2019-03-11] MEDS: DUONEB (A & A) INH SCH ×3 (07:30→16:18)
[2019-03-11] MEDS: LOPRESSOR PO SCH (08:11)
[2019-03-11] MEDS: NEURONTIN PO SCH ×3 (08:12→17:15)
[2019-03-11] MEDS: BUSPAR PO SCH (08:12)
[2019-03-11] MEDS: NEXIUM PO SCH (08:12)
[2019-03-11] MEDS: LINZESS PO SCH (08:12)
[2019-03-11] MEDS: ASPIRIN PO SCH (08:12)
[2019-03-11] MEDS: ZYLOPRIM PO SCH (08:13)
[2019-03-11] MEDS: PLAVIX PO SCH (08:14)
[2019-03-11] MEDS ORDERED: LEVAQUIN PO SCH (09:00)
[2019-03-11 16:18] VITALS: BP 173/74
--- NOTE | 2019-03-11 21:27 | CONSULTATION ---
DATE OF CONSULTATION: 03/11/2019 HISTORY OF PRESENT ILLNESS: Ms. Nick had left carotid endarterectomy about 2 weeks ago and did well from surgical standpoint. She presented about a week later with headache and possible transient dysphasia. There was not documented neurologic deficit on exam. Imaging was unremarkable. She was discharged. She returned to the hospital a few days ago with apparent recurrent dysphasia. She had been on aspirin, and clopidogrel was added. Blood pressures have been 110s-170s mostly, two systolics recorded 90s. She has had some mildly elevated blood sugars. Triglycerides and cholesterol are elevated. Her report to me is that she has periods of time when she knows what she wants to say and cannot seem to make her words properly. She believes that she recognizes this. She has not had trouble understanding what was said to her. She has not noticed focal weakness, vision disturbance, altered consciousness, collapse. She had headache last week but that has not been prominent recently. Workup this admission includes noncontrast CT of the head 03/07/2019 showing patchy lucency in the left hemisphere, possibly a little bit more prominent than on prior scan 03/03/2019. Last week, a CT angiogram and carotid ultrasound documented good flow in the recently operated left internal carotid. There is diffuse significant stenosis in other vessels. PHYSICAL EXAM: Ms. Nick is awake, alert, attentive. She seems appropriate. She answered my questions correctly. Speech is not dysarthric. She did well on bedside testing of repeating, naming, comprehension, fluency. I did not test reading or handwriting. She has good power in the limbs. Visual welsh are full. Facial motility is symmetric. I did not test her gait. IMPRESSION: History concerning for transient or persistent left hemisphere syndrome with primarily expressive dysphasia and no definite motor or visual deficit. I am not certain that she has had infarction. We might consider brain MRI when practical. At this point, she seems clinically stable. I agree with plans for dual antiplatelet with aspirin and clopidogrel together short term. I discussed potential increased bleeding risk with her and she understands to report any problems. I would continue managing blood pressure cautiously, treat lipids and cholesterol and triglycerides aggressively. If she continues symptomatic, we might consider brain MRI, repeat carotid imaging, workup to exclude seizure. Thanks for asking Neurology to see Ms. Nick again. cc: Carla Del Angel III, MD
--- NOTE | 2019-03-12 13:13 | EEG REPORT ---
DATE: 03/11/2019 EEG NUMBER: [id number] COMMENT: This is a digitally recorded EEG on a patient with recent left carotid endarterectomy, subsequent reports of dysphasia, possibly episodic deficit raising question of seizure. FINDINGS: During waking, medium amplitude polymorphic and rhythmic theta are present across the hemispheres bilaterally. There is higher amplitude slowing into the delta range in the left frontotemporal region. There was no associated epileptiform discharge. There is some central beta. Sustained posterior dominant rhythm was not identified bilaterally. Drowsing occurred briefly. Stage 2 sleep was not recorded. Photic stimulation did not significantly alter the record. INTERPRETATION: Abnormal EEG because of left hemispheric slowing. CORRELATION: This is indicative of a focal disturbance of electrocortical activity in the left hemisphere and is consistent with the known ischemic change noted on imaging. The absence of epileptiform discharges does not exclude a clinical diagnosis of seizure, but there is nothing on this record to suggest a seizure as the reason for the fluctuating symptoms. cc: MD LINSEY Cheung III
--- NOTE | 2019-03-12 16:37 | DISCHARGE SUMMARY ---
ADMISSION DATE: 03/07/2019 DISCHARGE DATE: 03/11/2019 ADDENDUM: SIGNIFICANT IMAGING DURING HOSPITAL ADMISSION: Head CT had chronic ischemic microvascular disease with possible subacute infarction in the anterior left parietal cortex. Chest x-ray on March 09, 2019 had no pneumonia. She was still provided a prescription of levofloxacin. TIME SPENT: More than 30 minutes were spent in discharging this patient. I called patient's daughter and discussed with her at length about imaging findings, need for dual antiplatelet and outpatient neurology as well as stroke center follow up. I answered all of her questions satisfactorily. cc: Galileo Davis MD MTDD
--- NOTE | 2019-03-12 16:48 | DISCHARGE SUMMARY ---
ADMISSION DATE: 03/07/2019 DISCHARGE DATE: 03/11/2019 DISCHARGE DISPOSITION: Home. DISCHARGE CONDITION: Patient is alert oriented x3. Denies any sensory or motor abnormality. Her word-finding difficulty has significantly decreased. EEG report has not popped up in the chart. However, according to my discussion with Neurology, she did not have any definite seizure, though she did have some left-sided slowing. DISCHARGE DIAGNOSES: 1. Expressive aphasia and stroke like symptoms which could be in the setting of left-sided hemispheric ischemia. 2. Suspected left-sided subclavian steal phenomenon on CT angiogram. However, ultrasound of carotid had forward flow in vertebral artery. 3. Left lower lobe pneumonia. 4. Chronic kidney disease stage 3. OTHER DIAGNOSES: 1. History of coronary artery disease status post CABG. 2. History of diabetes mellitus type 2. 3. Essential hypertension. 4. Hypothyroidism. 5. History of left carotid artery stenosis status post carotid endarterectomy in January 2019. DISCHARGE MEDICATION: 1. Aspirin 81 mg daily. 2. Plavix 75 mg daily for 3 months at least. 3. Metoprolol tartrate 50 mg b.i.d. 4. Doxepin 150 mg at nighttime. 5. Gabapentin 800 mg t.i.d. 6. Levothyroxine 100 mcg daily. 7. Tylenol with codeine 1 tablet every 8 to 12 hours. 8. Allopurinol 100 mg daily. 9. Tizanidine 4 mg every 8 hours as needed. 10. Donepezil 5 mg in the evening time. 11. Zolpidem 1 tablet at nighttime. 12. Linaclotide 145 mcg daily. 13. Buspirone 15 mg b.i.d.. 14. Tamsulosin 0.4 mg at nighttime. 15. Amlodipine 5 mg b.i.d. 16. 300 mg at nighttime. 17. Atorvastatin 40 mg at nighttime. VITALS: At the time of discharge temperature 97.6 degrees, pulse 83, respiratory rate 20, blood pressure 170/70 saturating 100% room air. PHYSICAL EXAMINATION: General: Does not appear in any acute distress. HEENT: Oral cavity is moist. Lungs: Air entry bilaterally equal. No wheeze rhonchi or crackles. Cardiovascular: S1, S2 normal. No murmur or gallop. Abdomen: Soft, nontender. No lower extremity edema. Neurologic: She was alert and oriented x3. Examination otherwise was nonfocal. She had intact cough. Speech appeared normal. There was no slurring. She did have some memory impairment; however, she would take some time and was able to appropriately verbalize. Did not have any definite word-finding difficulty. Power 5/5 in bilateral upper and lower extremities. Sensations were intact. SIGNIFICANT LABS: During hospital admission hemoglobin 10.6, platelet 303,000, potassium 3.4, BUN 16, creatinine 1.3. GFR in chronic kidney disease stage 3 range. Troponins negative x2. Microbiology no new data. HOSPITAL COURSE SUMMARY: Ms. Nick is 68 years old lady with past medical history of CVA who was found to have left carotid artery stenosis in January 2019 who underwent carotid end arterectomy. Since then, she has had 2 admissions for expressive aphasia and stroke like symptoms. This was her 3rd admission. On previous 2 admissions, MRI brain did not have any new CVA. Though CT angiography had suspicion for subclavian steal phenomena, the US carotids had forward flow in vertebral arteries. She came in again with chief complaints of expressive aphasia. Apparently after carotid endarterectomy, this is the patient's 3rd admission for the same symptoms, she did not have any focal deficit on admission except expressive aphasia. The workup previously had included multiple brain imaging which did not have any new stroke. There was a concern of subclavian steal phenomenon. However, ultrasound of the carotid after endarterectomy had forward flow so according to surgery, it was less likely. No definitive cause regarding patient's expressive aphasia could be figured out, so it was decided to optimize the patient's medical management. Plavix was added to her already aspirin and she was continued on atorvastatin. At the time of discharge, the patient was provided instructions about taking aspirin and Plavix. She was also provided instructions about discontinuing lot of her medications which could contribute to her symptoms and follow up with her outpatient provider. All of her questions were answered satisfactorily. cc: MD LINSEY Watson
== END 2019-03-11 18:56 | disposition home health service (06) | DRG 69 ==
LOC: SUPCPDRO → ED 13:25 → 3S 20:16 → SUATTDRO 20:16 → 3N 03-09 21:07
PROVIDERS: ATTEND Internal Medicine
CPT/HCPCS: 70450; 71010; 71020; 71045; 71046; 80048; 80053; 80061; 80101; 80301; 80307; 80324; 80345; 80346; 80353; 80358; 80361; 80365; 81001; 82533; 82550; 82607; 82948; 83036; 83721; 83992; 84439; 84443; 84484; 85025; 85610; 85730; 87088; 93005; 94640; 94760; 94761; 95816; 97162; 97165; 97530; A9270; G0431; G0434; G0479; G0480; J0696; J7030; XXXXX

== ENCOUNTER 2019-06-28 23:45 | Inpatient (IN) ==
[2019-06-29] MEDS ORDERED: NS 1,000 ML IV ONE ×2 (00:27→03:46)
[2019-06-29 00:47] LABS: BASO# 0.05 X1000 (0.0-0.2); BASO% 0.5 % (0.0-0.8); EOS# 0.04 X1000 (0.0-0.7); EOS% 0.4 % (0.0-10.0); HEMATOCRIT 31.7 % (37.0-47.0); HEMOGLOBIN 9.8 g/dL (12.0-16.0); LYMPH# 1.76 X1000 (1.2-3.4); LYMPH% 18.6 % (20.5-51.1); MCH 26.7 PG (27-31); MCHC 30.9 g/dL (33-37); MCV 86.4 FL (81-99); MONO# 0.63 X1000 (0.11-0.59); MONO% 6.6 % (1.7-9.3); MPV 10.6 FL (7.4-10.4); NEUT% 73.9 % (42.2-75.2); PLT 298 X1000 (130-400); RBC 3.67 XMIL (4.2-5.4); RDW 14.2 % (11.5-14.5); WBC 9.48 X1000 (4.8-10.8)
[2019-06-29 01:49] LABS: CALCIUM 8.2 mg/dL (8.8-10.2); CREATININE 2.7 mg/dL (0.5-0.9); POTASSIUM 4.8 mmol/L (3.5-5.1)
[2019-06-29 02:21] LABS: URINE SOURCE CATH
[2019-06-29 02:37] LABS: BILIRUBIN URINE NEGATIVE (NEGATIVE); BLOOD URINE NEGATIVE (NEGATIVE); COLOR YELLOW; GLUCOSE URINE NEGATIVE (NEGATIVE); KETONE URINE NEGATIVE (NEGATIVE); LEUKOCYTES URINE NEGATIVE (NEGATIVE); NITRITE URINE NEGATIVE (NEGATIVE); PH URINE 5.5; PROTEIN URINE NEGATIVE (NEGATIVE); SP GRAVITY URINE 1.016; TURBIDITY URINE CLEAR (CLEAR); UR EPITHELIAL CELLS <10 /HPF (<10); URINE BACTERIA NEGATIVE /HPF; URINE RBC <10 /HPF (<10); URINE WBC <10 /HPF (<10); UROBILINOGEN URINE NORMAL (NORMAL)
--- NOTE | 2019-06-29 03:48 | PROVIDER DOCUMENTATION ---
This chart was entered by Letty Loyd Scribe, acting as scribe for Odalys Gonzalez MD. HPI-General Adult - General Chief Complaint: Fall Stated Complaint: fall Time Seen by Provider: 06/29/19 00:23 Source: patient Allergies/Adverse Reactions: Patient Allergies Allergy/AdvReac Type Severity Reaction Status Date / Time adhesive tape AdvReac Unknown Verified 03/07/19 15:15 Home Medications: Home Medication List Medication Instructions Recorded Confirmed Last Taken Type Acetaminophen with Codeine 1 tab PO Q8-12H PRN PRN 02/26/18 06/29/19 02/23/19 History [Tylenol with Codeine #4 Tablet] Allopurinol 100 mg PO DAILY 02/26/18 06/29/19 02/23/19 History Doxepin [Sinequan] 150 mg PO QHS 02/26/18 06/29/19 02/23/19 History Gabapentin 800 mg PO TID 02/26/18 06/29/19 02/23/19 History Esomeprazole [Nexium] 40 mg PO DAILY 08/29/18 06/29/19 02/23/19 History Tizanidine [Zanaflex] 4 mg PO Q8H PRN PRN 08/29/18 06/29/19 02/23/19 History Buspirone [Buspar] 30 mg PO BID 02/18/19 06/29/19 02/23/19 History Furosemide 20 mg PO PRN PRN 02/18/19 06/29/19 02/22/19 History Aspirin 81 mg PO DAILY chewtab 02/26/19 06/29/19 Unknown Rx Duloxetine HCl 30 mg PO DAILY 06/29/19 06/29/19 Unknown History - History of Present Illness -Gen Adult Nature of Presenting Problems: 68 yowf c/o weakness and a fall. Sates she got up to go to bed and fell, unsure what she fell on. pt took her nightly rx and felt weak and dizzy. pt sts she felt good today. No chest pain no cough, no fever, no recent illness. Location of Pain/Injury: reports: none Pain Radiation: reports: no radiation Quality of Pain: reports: none Onset/Duration: reports: just prior to arrival Timing: reports: still present Modifying Factors: improves with: nothing Review of Systems - Adult - REVIEW OF SYSTEMS - ADULT ROS:: limited per condition Constitutional: reports: no symptoms reported. denies: chills, fever, fatique Eyes: reports: see HPI, blurred vision. denies: decreased vision, eye pain, redness Ears, Nose, Mouth & Throat: reports: no symptoms reported Cardiovascular: reports: no symptoms reported Respiratory: reports: no symptoms reported Gastrointestinal: reports: no symptoms reported Genitourinary: reports: no symptoms reported Musculoskeletal: reports: see HPI, muscle weakness. denies: joint pain, joint swelling, muscle aches Integumentary: reports: no symptoms reported Neurological: reports: see HPI, dizziness/vertigo, loss of balance. denies: numbness, syncope, tremors Psychiatric: reports: no symptoms reported Endocrine: reports: no symptoms reported Hematologic/Lymphatic: reports: no symptoms reported Allergic/Immunologic: reports: no symptoms reported All Other Systems: Reviewed and Negative Past History - Adult - PAST MEDICAL HISTORY-ADULT Review of Records: reports: Nursing Assessment Review, Medications Reviewed, Social history reviewed & non-contributory. Major Childhood Illnesses: reports: denies history Cardiovascular: reports: cardiac disease, HTN Respiratory: reports: denies history Gastrointestinal: reports: GERD, other (constipation) Obstetrical/Gynecological: reports: denies history Genitourinary: reports: kidney disease Musculoskeletal: reports: other (gout) Neurological: reports: CVA (x2), dementia, other (neuropathy) Psychiatric: reports: other (insomnia) Endocrine/Immune: reports: Diabetes, thyroid disorder Other Conditions: reports: denies history - PRIOR SURGERIES/PROCEDURES Surgical/Procedure History: reports: CABG, hysterectomy, other - IMMUNIZATION STATUS Childhood Immunizations: See Nurse Assessment Flu Vaccine: See Nurse Assessment - FAMILY HISTORY Family History: reviewed, not pertinent - SOCIAL HISTORY Smoking: non-smoker Substance Use: none/never Physical Exam-General - PHYSICAL EXAM-ADULT Initial Vital Signs Reviewed: Yes - CONSTITUTIONAL General Appearance: alert, no apparent distress - EYES Eyes: PERRL/EOMI, pink conjunctivae - HEAD, EARS, NOSE, MOUTH & THROAT HENMT: normocephalic/atraumatic, moist mucous membranes, normal ENT inspection - NECK Neck: non-tender, full range of motion, supple, normal inspection - RESPIRATORY Respiratory: chest non-tender, lungs clear, normal breath sounds - CARDIOVASCULAR Cardiovascular: normal peripheral pulses, no edema, no gallop, no JVD, no murmur , bradycardia. negative: regular rate, rhythm, tachycardia, extra beats, fric tion rub - GASTROINTESTINAL (ABDOMEN) Abdominal Exam: normal bowel sounds, non tender, soft - LYMPHATIC Lymphatic: no adenopathy - MUSCULOSKELETAL Back Exam: normal inspection, no CVA tenderness, no vertebral tenderness Extremity: normal range of motion, non-tender, normal inspection Peripheral Pulses: radial (R): 2+, radial (L): 2+ - SKIN Integumentary: normal color, normal turgor, warm/dry - NEUROLOGIC Neurologic: contract assistant II-XII nml as tested, grossly normal, no motor/sensory deficits - PSYCHIATRIC Psych/Mental Status: normal mood/affect, normal thought content, normal thought process, oriented x 3, other (hesitent speech but reports speech is due to prev cva.) Progress - PLAN OF CARE/RESULTS Progress/Plan/Lab Results: Orders Category Date Time Status EKG [EKG] Stat Ther 06/29/19 00:24 Ordered generalized weakness and fall will further evaluate for causes including but not limited to ACS, arrythmia, electrolyte imbalance, cva, tia, dehydration Result Diagrams: 06/29/19 00:36 06/29/19 00:36 - REASSESSMENT Reassessment #1 Status: improving (feeling better, but continued weakness and unable to ambulate without maximal assistance. ARF with elevated creatinine but remainder of labs and work up unremarkable. Additional IVF given and will admit for further evaluation and treatment. Discused case with Dr. Dillon, Hospitalist, who will see and admit pt.) - CT/MRI 1 CT Study: Head Impression: See EMR Report (Impression: 1. No acute findings. 2. No significant scalp soft tissue swelling. Chronic white matter ischemic changes. 3. Stable intracranial exam.) Departure - Departure Date of Disposition Decision: 06/29/19 Time of Disposition Decision: 03:48 DIAGNOSIS: Weakness Acute renal failure Qualifiers: Acute renal failure type: unspecified Qualified Code(s): N17.9 - Acute kidney failure, unspecified Disposition: ADMITTED INPATIENT 09 Certified Medical Emergency: Emergent Condition: Fair - Critical Care Note This patient required my direct & personal management of CC.: No Attestation - Physician/ RADHA Attestation Patient care was provided by Advanced Practice Provider:: No The physician spent face to face time with patient:: Yes Advanced Practice Provider documentation review:: Supervising physician onsite and consulted in the evaluation and care of this patient. The physician did have a face to face encounter with the patient. This chart was documented by the indicated scribe, (Letty Loyd, Jose) and accurately reflects the services I performed and decisions made by me, Odalys Gonzalez MD, as attested by the provider's signature.
[2019-06-29] MEDS ORDERED: LASIX PO PRN (04:11)
--- NOTE | 2019-06-29 04:42 | HISTORY AND PHYSICAL ---
PRIMARY CARE PHYSICIAN: Dr. Jenni Dejesus. CHIEF COMPLAINT: Fall, weakness. HISTORY OF PRESENTING ILLNESS: A 68-year-old female with a history of hypertension, CVA, coronary artery disease, dementia, was brought to the emergency department due to patient having a fall. She states that somehow she got weak and fell back. The patient is a poor historian. She states that she is weak and unable to ambulate and she lives alone. Due to her presenting symptoms, it was thought that we will place her for observation further evaluation management. At the time of my examination, patient denied any fever, chills, chest pain, shortness of breath, hemoptysis, melena or weight changes. Just states that she feels weak. PAST MEDICAL HISTORY: Includes hypertension, diabetes mellitus type 2 diet controlled, CVA, coronary artery disease, dementia, hypothyroidism, gout. PAST SURGICAL HISTORY: Hysterectomy, coronary bypass, left total knee, left carotid endarterectomy, abdominal surgery. ALLERGIES: Adhesive tape. CURRENT MEDICATIONS: Allopurinol 100 mg p.o. daily, aspirin 81 mg daily, buspirone 30 mg p.o. b.i.d., doxepin 150 mg p.o. at bedtime, Duloxetine 30 mg p.o. daily, Nexium 40 mg p.o. daily, Lasix 20 mg p.o. daily, gabapentin 800 p.o. t.i.d., Zanaflex 4 mg p.o. q.8 hours. SOCIAL HISTORY: She is a former smoker. Denies any history of alcohol or illicit drug use. FAMILY HISTORY: No history of coronary artery disease. REVIEW OF SYSTEMS: Fourteen point review of system listed as in HPI. Other systems negative. PHYSICAL EXAMINATION: GENERAL: Cooperative, friendly female. She is resting comfortably now. VITAL SIGNS: Pulse 50, respirations 17, blood pressure 81/49. HEENT: Atraumatic, normocephalic. Extraocular movements intact. PERRLA. NECK: No masses. CHEST: Clear to auscultation. CARDIOVASCULAR: Regular rate and rhythm. ABDOMEN: Soft. Positive bowel sounds. EXTREMITIES: No edema. NEUROLOGIC: She is awake, alert, oriented x2. GENITOURINARY: No bladder distention. SKIN: Warm. LABORATORIES AND STUDIES: WBCs 9.48, hemoglobin 9.8, hematocrit 31.7, platelets 298,000. Sodium 139, potassium 4.8, chloride 100, CO2 is 24, BUN is 38, creatinine is 2.7, glucose is 122. UA is nitrite negative. ASSESSMENT: This is a 68-year-old female with a history of hypertension, cerebrovascular accident, coronary artery disease, dementia, who was brought to the emergency department due to patient having a fall. She was evaluated in the emergency department. She is unable to ambulate and she complained of generalized weakness. Due to her presenting symptoms, we will place her for observation for further evaluation and management. 1. Status post fall. 2. Generalized weakness. 3. Acute kidney injury. 4. History of coronary artery disease. 5. Hypertension. PLAN: 1. We will admit patient to medical floor with telemetry. 2. We will check orthostatic blood pressure and pulse. 3. We will consult Physical Therapy. 4. Continue with IV fluid. 5. We will restart other home medications. 6. We will monitor blood pressure closely. 7. Put patient on DVT prophylaxis with SCDs. 8. We will continue to follow, and reassess and make further recommendation based on patient's clinical course. cc: Salvador Dillon MD
[2019-06-29] MEDS: NS 1,000 ML IV SCH ×2 (05:19→17:07)
[2019-06-29] MEDS: NEXIUM PO SCH ×2 (05:19→06:35)
--- NOTE | 2019-06-29 06:33 | Diag Imaging Result Doc PS360 ---
CHEST-1 VIEW - 06/29/2019 INDICATION: fall wtih hypotension COMPARISON: 03/09/2019 FINDINGS: Stable sternotomy wires. There is new ill-defined infiltrate in the left lower lobe. Heart size and pulmonary vascularity is top normal. No pneumothorax or significant pleural effusion. IMPRESSION: Left lower lobe infiltrate compatible with pneumonia. Electronically signed by Chip Parmar 06/29/2019 6:30 AM
--- NOTE | 2019-06-29 07:48 | Diag Imaging Result Doc PS360 ---
EXAM: CT HEAD W/O CONTRAST INDICATION: fall with confusion and hypotension TECHNIQUE: This exam was performed using automated exposure control, adjustment of mA or kV according to patient size, and/or use of iterative reconstruction technique. COMPARISON: 03/07/2019 FINDINGS: There is patchy low attenuation in the periventricular and subcortical white matter suggesting moderate microangiopathy. There is probably mild focal encephalomalacia involving the left frontal lobe. However, it is stable. There is no definite acute infarct given the limited sensitivity of CT versus MRI. There is no discrete intracranial mass, mass effect, or intracranial hemorrhage. There is minimal medullary sinus mucosal thickening. Surrounding soft tissues and bony structures are essentially unremarkable, otherwise. IMPRESSION: Stable chronic appearing changes as described. No definite acute intracranial pathology by CT. Electronically signed by Rj Loyd 06/29/2019 7:45 AM
[2019-06-29] MEDS ORDERED: NEURONTIN PO SCH (09:00)
[2019-06-29] MEDS: CYMBALTA PO SCH (10:40)
[2019-06-29] MEDS: BUSPAR PO SCH ×2 (10:40→20:59)
[2019-06-29] MEDS: ASPIRIN PO SCH (10:40)
[2019-06-29] MEDS: ZYLOPRIM PO SCH (10:40)
[2019-06-29] MEDS ORDERED: TYLENOL PO PRN (13:37)
[2019-06-29] MEDS ORDERED: LR 1,000 ML IV SCH (14:30)
[2019-06-29] MEDS ORDERED: LEVAQUIN 500 MG/D5W 500 MG/100 ML IVPB IV SCH (14:30)
--- NOTE | 2019-06-29 15:14 | EKG Report ---
Test Performed on : 06/29/2019 2:09:44 PM Test Reason : Bradycardia and hypotension Blood Pressure : / mmHG Vent. Rate : 070 BPM Atrial Rate : 070 BPM P-R Int : 150 ms QRS Dur : 084 ms QT Int : 414 ms P-R-T Axes : 025 041 204 degrees QTc Int : 447 ms Normal sinus rhythm. Nonspecific T wave abnormality Abnormal ECG When compared with ECG of 07-MAR-2019 14:18, Nonspecific T wave abnormality now evident in Inferior leads Nonspecific T wave abnormality now evident in Anterior leads Confirmed by Chanell DUNCAN, Jaden Garcia ([id number]) on 06/29/2019 3:32:15 PM
--- NOTE | 2019-06-29 17:04 | PROGRESS NOTE ---
DATE: 06/29/2019 INTERVAL HISTORY: She was admitted after a fall which she does not remember the circumstances of, then she was able to crawl to the telephone and call her sister who lives next door, and so she was brought to the emergency room. Apparently, there was expressive aphasic when the sister saw her. In the emergency room she was found to be hypotensive and in acute renal failure, so the hospitalist team was requested on admission. SUBJECTIVE: Currently she is feeling better. She denies any chest pain or shortness of breath or cough. However, she has had some memory impairment according to the sister, so her symptom related history may not be entirely reliable. VITAL SIGNS: Suggestive of temperature 98.5 degrees, pulse 64, respiratory rate 18, blood pressure 93/43, saturating 92% on 2 L nasal cannula. PHYSICAL EXAMINATION: General: Not in any acute distress. HEENT: Oral cavity is moist. Lungs: Air entry decreased bilateral infrascapular region with inspiratory crackles. Cardiovascular: S1, S2 normal. Late systolic murmur heard at left 2nd intercostal space and there is an early diastolic murmur affecting left lower sternal border. Abdomen: Soft, nontender. Extremities: No lower extremity edema. She does have some calf tenderness on the right. Neurologic: She is alert. She, however, does have some memory lapses. LAB: Suggestive of normocytic anemia, normal platelet count. She has acute kidney injury. MICROBIOLOGY: No positive data. ASSESSMENT AND PLAN: 1. Status post mechanical fall with prior history of cerebrovascular accident and likely cognitive impairment related to it. Her head CT was unremarkable. Currently, she does not have marked tenderness of any of her joints. She is able to sit herself up in the bed, moving all extremities spontaneously and on command. Physical therapy evaluation has been requested. I will continue her home aspirin. She is not listed to be taking any atorvastatin for her history of CVA. On previous discharge she was supposed to be on clopidogrel, which does not appear to be the case at the moment. She has a follow-up appointment with Neurology on July 22, 2019. 2. Hypotension and acute kidney injury. Her creatine kinase was unremarkable. Her acute kidney injury could be related to poor oral intake and her use of furosemide that she is not able to attest to clearly. I will give her additional intravenous fluids and follow up with [facility] tomorrow. 3. Suspected left lower lobe pneumonia. The patient denies having chest pain or shortness of breath or cough, though during my examination, she did cough once in a while. I will follow up with CBC, chest x-ray, and urine antigens. I will start her on intravenous levofloxacin, renally dosed. If her chest x-ray tomorrow suggests improvement and she continues not to have symptoms, then her antibiotics could be discontinued based on blood cultures and clinical picture. 4. Others. She is listed to be taking high dose gabapentin which could cause dizziness and mechanical fall at high doses, which I will hold. I will continue her home doxepin. Continue home allopurinol, buspirone, and duloxetine. DISPOSITION: I will monitor patient inside the hospital considering her hypotension. Based on that, if her blood pressure is better and chest x-ray suggests improvement, she will be discharged in the next 24 hours. Plan of care discussed with the patient and her sister at bedside. Their questions have been answered. cc: Galileo Davis MD MTDD
[2019-06-29] MEDS: SINEQUAN PO SCH (20:59)
[2019-06-30] MEDS: NS 1,000 ML IV SCH (02:12)
[2019-06-30 06:30] LABS: BASO# 0.03 X1000 (0.0-0.2); BASO% 0.5 % (0.0-0.8); EOS# 0.08 X1000 (0.0-0.7); EOS% 1.3 % (0.0-10.0); HEMATOCRIT 33.3 % (37.0-47.0); HEMOGLOBIN 10.3 g/dL (12.0-16.0); IMM GRAN# 0.03 X1000 (0.0-0.04); IMM GRAN% 0.5 % (0.0-0.5); LYMPH# 1.85 X1000 (1.2-3.4); LYMPH% 29.1 % (20.5-51.1); MCH 27.3 PG (27-31); MCHC 30.9 g/dL (33-37); MCV 88.3 FL (81-99); MONO# 0.64 X1000 (0.11-0.59); MONO% 10.1 % (1.7-9.3); MPV 10.5 FL (7.4-10.4); NEUT# 3.73 X1000 (1.4-6.5); NEUT% 58.5 % (42.2-75.2); PLT 305 X1000 (130-400); RBC 3.77 XMIL (4.2-5.4); RDW 14.7 % (11.5-14.5); WBC 6.36 X1000 (4.8-10.8)
[2019-06-30] MEDS: NEXIUM PO SCH (06:30)
[2019-06-30 06:56] LABS: CALCIUM 9.2 mg/dL (8.8-10.2); CREATININE 1.5 mg/dL (0.5-0.9); POTASSIUM 4.3 mmol/L (3.5-5.1)
--- NOTE | 2019-06-30 09:27 | Diag Imaging Result Doc PS360 ---
EXAM: CHEST-2 VIEWS 06/30/2019 HISTORY: Follow up pneumonia left lower lobe TECHNIQUE: PA and lateral chest COMMENT: There are granulomata present in the left apex, and there has been previous left upper lobectomy. The opacity which was previously present in the left base on 06/29/2019 has largely cleared. IMPRESSION: Improved atelectasis and/or pneumonia left lower lobe. Electronically signed by Morgan Siegel 06/30/2019 9:25 AM
[2019-06-30] MEDS: CYMBALTA PO SCH (09:47)
[2019-06-30] MEDS: BUSPAR PO SCH ×2 (09:47→21:23)
[2019-06-30] MEDS: ASPIRIN PO SCH (09:47)
[2019-06-30] MEDS: ZYLOPRIM PO SCH (09:47)
[2019-06-30] MEDS: SYNTHROID PO SCH (10:06)
--- NOTE | 2019-06-30 10:19 | PROGRESS NOTE ---
DATE: 06/30/2019 SUBJECTIVE: Ms Nick states that she is feeling better. She denies any complaints. She has just returned from x-ray at the time of my exam. OBJECTIVE: Vital signs: Blood pressure is 122/57 with heart rate of 77, respirations 18, temperature is 97.9 degrees oral with room air saturations 96%. HEENT: Head is normocephalic, atraumatic. Mucous membranes are moist. Neck: Supple with trachea midline. Cardiovascular: Regular rate and rhythm. S1 and S2 are appreciated. She does have a systolic murmur heard best at the left 2nd intercostal space as well as a diastolic murmur at the left lower sternal border. She has no lower extremity edema. Calves are nontender bilateral. Pulmonary: Breath sounds are diminished throughout. Chest rises and falls symmetrically with respiration. Chest wall is nontender to palpation. Gastrointestinal: Abdomen is soft, nontender, nondistended with bowel sounds in all 4 quadrants. Neurologic: She is alert. She is oriented to herself and knows she is at the hospital. LABORATORY DATA: WBC is 6.3 with hemoglobin 10.3, hematocrit 33.3, platelets of 305,000. Sodium 142, potassium 4.3, BUN 20 with a creatinine of 1.5, glucose of 88. TSH is 31.18. IMAGING: Chest x-ray reveals improved atelectasis and/or pneumonia in the left lower lobe. ASSESSMENT AND PLAN: 1. Status post mechanical fall. She does have a prior history of CVA and likely cognitive impairment related to this. Physical Therapy did evaluate the patient. She did walk with a walker. They did recommend outpatient physical therapy. 2. History of cerebrovascular accident. The patient is followed by Neurology with the next appointment 07/22/2019. 3. Hypotension. Blood pressures have increased. She is not orthostatic at this time. We will continue to monitor vital signs. 4. Acute kidney injury in the setting of chronic kidney disease. Creatinine is down to 1.5 today. In reviewing her past labs, she has been 1.3 to 1.6. We will continue to monitor. 5. Suspected left lower lobe pneumonia. Chest x-ray shows clearing. We will continue with her antibiotics. 6. Hypothyroid. TSH is 31. In review of the patient's discharge on 03/12/2019, the patient was discharged on levothyroxine 100 mcg daily although it is not on the patient's home medication list. We will restart this and follow her labs. We will continue to hold her gabapentin. We will continue with her current medical regimen. Dictated by HUMBERTO Canela for Yasmany Marks MD cc: HUMBERTO Canela MD
[2019-06-30] MEDS: SINEQUAN PO SCH (21:23)
[2019-07-01] MEDS: NEXIUM PO SCH (06:30)
[2019-07-01] MEDS: SYNTHROID PO SCH (06:30)
[2019-07-01 07:39] LABS: CALCIUM 8.9 mg/dL (8.8-10.2); CREATININE 1.3 mg/dL (0.5-0.9); POTASSIUM 4.4 mmol/L (3.5-5.1)
[2019-07-01] MEDS: CYMBALTA PO SCH (10:21)
[2019-07-01] MEDS: ZYLOPRIM PO SCH (10:22)
[2019-07-01] MEDS: ASPIRIN PO SCH (10:22)
[2019-07-01] MEDS: BUSPAR PO SCH (10:22)
[2019-07-01] MEDS ORDERED: PNEUMOVAX 23 IM ONE (11:09)
[2019-07-01 11:25] VITALS: BP 125/71
--- NOTE | 2019-07-01 22:03 | DISCHARGE SUMMARY ---
ADMISSION DATE: 06/29/2019 DISCHARGE DATE: 07/01/2019 DISCHARGE DIAGNOSES: 1. Status post mechanical fall. 2. History of previous cerebrovascular accident. She will follow with Neurology on 07/22/2019. 3. Hypotension. Resolved. 4. Acute kidney injury on chronic kidney disease. Resolved. 5. Left lower lobe pneumonia. 6. Hypothyroidism, uncontrolled. The patient was not taking her medications. PROCEDURES PERFORMED: 1. Chest x-ray dated 06/29/2019, impression: Left lower lobe infiltrate compatible with pneumonia. 2. Head CT dated 06/29/2019, impression: Stable, chronic-appearing changes as described. No definite acute intracranial pathology by CT. 3. Chest x-ray dated 06/30/2019, impression: Improved atelectasis and/or pneumonia of left lower lobe. HOSPITAL COURSE: A 68-year-old, female, with a past medical history of hypertension, CVA, coronary artery disease, dementia, was brought to the emergency department due to a fall. As per the patient, she somehow got weak and fell back. The patient is a poor historian. She states that she was weak, unable to ambulate, and she lives alone. She was hospitalized. We did an x- ray that showed left lower lobe pneumonia. Also, we saw that this patient's TSH was elevated, and as per the patient, she has not been taking her home medications. She was dehydrated as well and that improved with some IV fluids. Creatinine at the beginning was 2.7 and now 1.3. We put this patient back on her levothyroxine. We started this patient on levofloxacin for her pneumonia. Chest x-ray looked better when we repeated compared with the admission. Today, this patient is feeling much better. She is basically asymptomatic today. The blood pressure has been stable. She has not been having orthostatic hypotension. She wants to go home. I explained to her that she needs to take her treatment as prescribed, especially the antibiotics and the levothyroxine, and she seems to understand. She refused physical therapy because she does not want to go to a rehab center. PHYSICAL EXAMINATION: Vital Signs: Temperature 98.2 degrees, pulse 91, respiratory rate 18, blood pressure 125/71, oxygen saturation 98 on room air. HEENT: Head normocephalic, no trauma. PERRLA. Neck: Supple. No JVD. No masses. Central trachea. Chest: Clear to auscultation. No wheezing. No rales. Some crepitus at the level of the left lower lobe. Abdomen: Soft, nontender, nondistended. No hepatosplenomegaly. Extremities: No edema. No clubbing. No cyanosis. Neurological: The patient is alert. She is oriented. She is following commands. She is answering all of my questions. LABORATORY DATA: Sodium 144, potassium 4.4, chloride 105, bicarbonate 25, BUN 15, creatinine 1.3, glucose 99, calcium 8.9. TSH 31 and repeat was 51. DISCHARGE MEDICATIONS: 1. Acetaminophen with codeine No. 4 one tablet p.o. q.8 to 12 hours as needed. 2. Allopurinol 100 mg p.o. daily. 3. Aspirin 81 mg p.o. daily. 4. BuSpar 30 mg p.o. b.i.d. 5. Doxepin 150 mg p.o. at bedtime. 6. Duloxetine 30 mg p.o. daily. 7. Nexium 40 mg p.o. daily. 8. Furosemide 20 mg p.o. as needed for extremity edema. 9. Gabapentin 100 mg p.o. t.i.d. 10. Levofloxacin 500 mg p.o. daily to complete 5 days of treatment. 11. Levothyroxine 100 mcg p.o. daily. 12. Zanaflex 4 mg p.o. q.8 hours as needed. TIME DISCHARGING THIS PATIENT: 20 minutes. cc: Yasmany Marks MD
== END 2019-07-01 12:30 | disposition home or self-care (01) | DRG 682 ==
LOC: SUPCPDRO → ED 23:45 → SUATTDRO 06-29 04:48 → 3N 06-29 04:48
PROVIDERS: ATTEND Internal Medicine